=== PATIENT | female | born 1950 | race African-American/Black ===

== ENCOUNTER 2016-07-02 14:34 | Outpatient (CLI) ==
[2012-10-24 06:54] VITALS: TEMP 98.1
[2016-02-26 16:40] VITALS: BMI 39.3
--- NOTE | 2016-07-02 17:24 | MRI ---
EXAM: Brain MRI without contrast. HISTORY: Headache and dizziness. COMPARISON: Head CT 10/21/[address] 11/23/2009. TECHNIQUE: Multiplanar, multisequence MR images were acquired of the brain without contrast. FINDINGS: The midline structures are central. The cerebellar tonsils extend to the foramen magnum without overt ectopia. The ventricles and sulci are normal in size and configuration. There are no abnormal extra-axial fluid collections. The brain parenchyma has no diffusion restriction to suggest acute hypoperfusion or infarction. The re are small T2 hyperintensities in the supratentorial white matter consistent with mild leukomalaci a. There is no abnormal dark gradient echo signal. The corpus callosum is normal. The sella is ex panded and the pituitary gland is small and flattened inferiorly consistent with a mostly empty sell a. There are no intraorbital masses. There is no flattening of the posterior sclera at the optic nerve head insertions and there is no increased fluid in the optic nerve sheaths to suggest benign intrac ranial hypertension. Minor hyperostosis frontalis interna is present. Paranasal sinuses, middle ears and mastoids are unremarkable. Flow voids are present in the major intracranial arteries and dural venous sinuses. IMPRESSION: 1. No intracranial mass, hemorrhage or acute cerebral infarct. 2. Mostly empty sella.
== END 2016-07-02 14:35 | disposition home or self-care (01) ==
LOC: RAD 14:34
PROVIDERS: ATTEND Emergency Medicine
DX: R42 Dizziness and giddiness (principal); R51 Headache

== ENCOUNTER 2016-07-08 15:52 | Outpatient (CLI) ==
[2012-10-24 06:54] VITALS: TEMP 98.1
[2016-02-26 16:40] VITALS: BMI 39.3
== END 2016-07-08 15:53 | disposition home or self-care (01) ==
LOC: CAR 15:52
PROVIDERS: ATTEND Emergency Medicine
DX: G47.30 Sleep apnea, unspecified (principal)
CPT/HCPCS: 95810

== ENCOUNTER 2016-07-29 15:58 | Outpatient (CLI) ==
[2012-10-24 06:54] VITALS: TEMP 98.1
[2016-02-26 16:40] VITALS: BMI 39.3
== END 2016-07-29 15:59 | disposition home or self-care (01) ==
LOC: CAR 15:58
PROVIDERS: ATTEND Psychiatry & Neurology Neurology
DX: G47.33 Obstructive sleep apnea (adult) (pediatric) (principal)
CPT/HCPCS: 95811

== ENCOUNTER 2016-10-28 23:01 | Outpatient (CLI) ==
[2012-10-24 06:54] VITALS: TEMP 98.1
[2016-10-28 23:51] VITALS: BMI 42.3
== END 2016-10-28 23:02 ==
LOC: AMBL 23:01
PROVIDERS: ATTEND Emergency Medicine
DX: R51 Headache (principal); R42 Dizziness and giddiness; I10 Essential (primary) hypertension; M54.9 Dorsalgia, unspecified; G89.29 Other chronic pain; Z98.890 Other specified postprocedural states

== ENCOUNTER 2016-10-28 23:11 | Emergency (ER) ==
[2016-10-28] MEDS ORDERED: ZOFRAN 4 MG/2 ML IM STA (23:14)
[2016-10-28] MEDS ORDERED: DEMEROL 25 MG/ML SYRINGE IM STA (23:14)
[2016-10-28] MEDS ORDERED: CATAPRES PO STA (23:19)
--- NOTE | 2016-10-28 23:19 | ED.PDOC ---
General ED Provider: Dr. GRZEGORZ ELDER Chief Complaint: Hypertension Stated Complaint: patient had injection in the lower back todat at PM, ever since she started hurting more in the lower back, came home slept, while turning in the bed she felt dizzi, weak, EMT was called for the evaluation. Time Seen by Physician: 23:17 Primary Care Provider: PEPE BERMEO Nursing and Triage Documentation Reviewed and Agree: Yes Cardiovascular Complaint Exam - Hypertension Complaint/Exam Symptoms Are: Still present Timing: Constant Aggravating: Reports: Exertion Alleviating: Reports: None Associated Signs and Symptoms: Reports: Recent stress (increased pain), Weakness , Dizziness Related History: Reports: Similar episode Related Surgical History: Reports: None Cardiac Risk Factors: Reports: Hypertension, Elevated lipids Recent Change in Medications: No A/V [place]: No Papilledema Present: No JVD Present: No Carotid Bruit Present: No Femoral Pulses Bounding: No Differential Diagnoses: Hypertension Quality Indicator For Non-Traumatic Chest Pain/Syncope: EKG Performed Review of Systems - Review Of Systems Constitutional: Reports: Malaise, Weakness Eyes: Reports: No symptoms Ears, Nose, Mouth, Throat: Reports: No symptoms Respiratory: Reports: No symptoms Cardiac: Reports: No symptoms GI: Reports: No symptoms : Reports: No symptoms Musculoskeletal: Reports: No symptoms Skin: Reports: No symptoms Neurological: Reports: No symptoms Endocrine: Reports: No symptoms Hematologic/Lymphatic: Reports: No symptoms All Other Systems: Reviewed and Negative Past Medical History - Past Medical History Previously Healthy: Yes Endocrine: Reports: Dyslipidemia Cardiovascular: Reports: Hypertension, Other (IRREGULAR HEART BEAT) Respiratory: Reports: None Hematological: Reports: None Gastrointestinal: Reports: PUD, GERD, Diverticulitis (colon resection) Genitourinary: Reports: None Neuro/Psych: Reports: Anxiety, Depression Musculoskeletal: Reports: Arthritis, Back Pain, Joint Pain Cancer: Reports: None Other Pertinent Past Medical History: [ End ]htn chol anxIRREGULAR HEART BEAT - Surgical History General Surgical History: Reports: Hysterectomy, Appendectomy, Cholecystectomy, Orthopedic (R KNEE REPLACEMENT), Other (RUPTURED BOWEL WITH COLOSTOMY, COLOSTOMY REVERSAL) - Family History Family History: Reports: Unknown - Social History Smoking Status: Former smoker Hx Substance Use: No Alcohol Screening: None Physical Exam - Physical Exam Appearance: Ill-appearing, Obese Ill-appearing: Mild Eyes: EOMI, Conjunctiva clear ENT: Ears normal, Nose normal, Oropharynx normal Respiratory: Airway patent, Breath sounds clear, Breath sounds equal, Respirations nonlabored Cardiovascular: RRR, Pulses normal, No rub, No murmur GI/: Soft, Nontender, No masses, Bowel sounds normal, No Organomegaly Musculoskeletal: Normal strength, ROM intact, No edema, No calf tenderness Skin: Warm, Dry, Normal color Neurological: Sensation intact, Motor intact, Reflexes intact, Cranial nerves intact, Alert, Oriented Psychiatric: Affect appropriate, Mood appropriate Critical Care Note - Critical Care Note Total Time (mins): 0 Course - Course Hematology/Chemistry: 10/28/16 23:34 10/28/16 23:34 Orders, Labs, Meds: Lab Review 10/28/16 23:34 WBC 3.85 L RBC 4.36 Hgb 12.7 Hct 38.7 MCV 88.8 MCH 29.1 MCHC 32.8 RDW Coeff of [place] 13.2 Plt Count 277 Immature Gran % (Auto) 0.3 Neut % (Auto) 75.0 Lymph % (Auto) 21.0 [place] % (Auto) 3.4 Eos % (Auto) 0.0 Baso % (Auto) 0.3 Immature Gran # (Auto) 0.0 Neut # 2.9 Lymph # 0.8 [place] # 0.1 L Eos # 0.0 Baso # 0.0 Sodium 137 Potassium 4.0 Chloride 101 Carbon Dioxide 27 Anion Gap 13.0 BUN 10 Creatinine 0.92 Estimated GFR (MDRD) 74.00 BUN/Creatinine Ratio 10.86 Glucose 245 H Calcium 10.3 H Total Bilirubin 0.20 AST 15 ALT 12 Alkaline Phosphatase 126 Total Creatine Kinase 90 Troponin I 0.0220 Total Protein 8.4 H Albumin 3.8 Globulin 4.6 Albumin/Globulin Ratio 0.83 Orders Category Date Time Status EKG-(ED ONLY) Stat CARDIO 10/28/16 23:14 Completed CBC W/ AUTO DIFF Stat LAB 10/28/16 23:34 Completed COMPREHENSIVE METABOLIC PANEL Stat LAB 10/28/16 23:34 Completed CREATINE KINASE Stat LAB 10/28/16 23:34 Completed TROPONIN I Stat LAB 10/28/16 23:34 Completed Clonidine HCl [Catapres] MEDS 10/28/16 23:19 Discontinued 0.2 mg PO ONCE STA Meperidine HCl/Pf [Demerol 25 mg/ml Syringe] MEDS 10/28/16 23:14 Discontinued 25 mg IM ONCE STA Ondansetron HCl/Pf [Zofran 4 mg/2 ml] MEDS 10/28/16 23:14 Discontinued 4 mg IM ONCE STA CT HEAD W/O CONTRAST Stat RADS 10/28/16 23:[address] LUMBAR SPINE W/O CONTRAST Stat RADS 10/28/16 23:14 Completed Medications Discontinued Medications Generic Name Dose Route Start Last Admin Trade Name Annalee NUNEZ Reason Stop Dose Admin Clonidine 0.2 mg 10/28/16 23:19 10/28/16 23:41 Catapres PO 10/28/16 23:20 0.2 mg ONCE STA Administration Meperidine HCl 25 mg 10/28/16 23:14 10/28/16 23:39 Demerol 25 Mg/Ml Syringe IM 10/28/16 23:15 25 mg ONCE STA Administration Ondansetron HCl 4 mg 10/28/16 23:14 10/28/16 23:40 Zofran 4 Mg/2 Ml IM 10/28/16 23:15 4 mg ONCE STA Administration Vital Signs: Temp Pulse Resp BP Pulse Ox 10/29/16 01:00 156/97 H 10/29/16 00:45 170/80 H 10/28/16 23:14 97.9 F 81 20 171/123 H 93 L KENNETH Risk Score KENNETH Risk Score: Risk Score Odds of by 30D 0 0.1 (0.1-0.2) 1 0.3 (0.2-0.3) 2 0.4 (0.3-0.5) 3 0.7 (0.6-0.9) 4 1.2 (1.0-1.5) 5 2.2 (1.9-2.6) 6 3.0 (2.5-3.6) 7 4.8 (3.8-6.1) Departure - Departure Time of Disposition: 01:10 Disposition: HOME SELF-CARE Discharge Problem: Hypertension Qualifiers: Hypertension type: essential hypertension Qualifier Code: (I10) Essential ( primary) hypertension Instructions: Hypertension (ED) Condition: Stable Pt referred to PMD for follow-up: Yes Additional Instructions: keep checking blood pressure risk of stroke discussed f/u with PMD in 2-3 days Allergies/Adverse Reactions: Allergies atorvastatin calcium [From Lipitor] Allergy (Unknown, Verified 10/28/16 23:34) UNKNOWN ketorolac tromethamine [From Toradol] Allergy (Unknown, Verified 10/28/16 23:34) UNKNOWN morphine Allergy (Unknown, Verified 10/28/16 23:34) UNKNOWN niacin Allergy (Unknown, Verified 10/28/16 23:34) UNKNOWN Penicillins Allergy (Unknown, Verified 10/28/16 23:34) UNKNOWN aspirin Adverse Reaction (Mild, Verified 10/28/16 23:34) UPSET STOMACH CAN ONLY TAKE ENTERIC COATED ASPIRIN Home Medications: Ambulatory Orders Clonidine HCl [Catapres] 0.2 mg PO TID 10/21/12 Lorazepam [Ativan] 1 mg PO BID PRN 10/21/12 Rosuvastatin Calcium [Crestor] 20 mg PO BEDTIME 10/21/12 Lisinopril [Zestril] 10 mg PO DAILY 12/05/12 Diltiazem HCl 120 mg PO BID 12/06/12 Hydrocodone/Acetaminophen [[place] 10-325 Tablet] 1 each PO Q6HR PRN #12 tablet Carvedilol 3.125 mg PO BID 06/25/15 Gabapentin 300 mg PO TID 06/25/15 Pantoprazole Sodium 40 mg PO BID 06/25/15 Escitalopram Oxalate [Lexapro] 20 mg PO DAILY #30 tablet 06/28/15 Neomycin/Polymyxin B Sulf/Hc [Ouevebrd-Jgzk-Gx Eye Drops] 7.5 ml OP TID 7 Days 06/28/15 Sucralfate Susp [Carafate] 1 gm PO ACHS #120 cup 06/28/15 Disposition Discussed With: Patient
[2016-10-28 23:36] LABS: BASOPHILS % (AUTO) 0.3 % (0.0-3.0); HEMATOCRIT 38.7 % (37.0-47.0); HEMOGLOBIN 12.7 g/dl (12.0-16.0); IMMATURE GRANULOCYTE % (AUTO) 0.3 % (0.0-5.0); LYMPHOCYTES # (AUTO) 0.8 K/uL (0.60-3.4); MEAN CORPUSCULAR HEMOGLOBIN 29.1 pg (27.0-31.0); MEAN CORPUSCULAR HGB CONC 32.8 (31.8-35.4); MEAN CORPUSCULAR VOLUME 88.8 fl (81.0-99.0); MONOCYTES # (AUTO) 0.1 K/uL (0.4-2.0); MONOCYTES % (AUTO) 3.4 (0-10); NEUTROPHILS # (AUTO) 2.9 K/ul (2.0-6.9); PLATELET COUNT 277 10^3/uL (140-440); RED BLOOD COUNT 4.36 10^6/ul (4.20-5.40); WHITE BLOOD COUNT 3.85 K/ul (4.6-10.2)
[2016-10-28 23:51] VITALS: TEMP 97.9; BMI 42.3
[2016-10-29 00:01] LABS: ALBUMIN 3.8 g/dL (3.4-5.0); ALBUMIN/GLOBULIN RATIO 0.83; BILIRUBIN,TOTAL 0.2 mg/dL (0.00-1.20); BUN/CREATININE RATIO 10.86; CALCIUM 10.3 mg/dL (8.2-10.2); CREATININE 0.92 mg/dL (0.60-1.30); TOTAL PROTEIN 8.4 g/dL (5.8-8.1); TROPONIN I 0.022 ng/ml (0.0000-0.4000)
--- NOTE | 2016-10-29 00:17 | CT ---
EXAM: CT lumbar spine without intravenous contrast 10/28/2016. Sagittal and coronal reformatted im ages obtained HISTORY: Back pain COMPARISON: 11/05/2014 FINDINGS: A normal lumbar lordosis is maintained. The vertebral bodies appear intact without evide nce of fracture. The facet joints align normally. Mild multilevel degenerative disc disease. Mild to moderate facet arthropathy most prominent at L4- S1. Posterior disc bulge flattens the thecal sac at L5-S1. No definitive spinal stenosis. IMPRESSION: Degenerative findings as discussed above. No acute osseous abnormality of the lumbar s pine.
--- NOTE | 2016-10-29 00:17 | CT ---
EXAM: CT scan brain without contrast HISTORY: Headache COMPARISON: CT scan brain 10/25/2012 FINDINGS: Contiguous axial images were obtained from the skull base to the convexities without cont rast utilizing 5-mm collimation. Sagittal and coronal reconstructions were imaged and reviewed.. T he ventricles and CSF spaces are within normal limits. There are no acute intracranial findings. T here is an empty appearing sella. Visualized paranasal sinuses and mastoid air cells are clear. IMPRESSION: No acute intracranial findings.
[2016-10-29 01:17] VITALS: BP 156/97
== END 2016-10-29 01:15 | disposition home or self-care (01) ==
LOC: ED 23:11
DX: I10 Essential (primary) hypertension (principal); M54.5 Low back pain; R42 Dizziness and giddiness; R53.1 Weakness; E78.5 Hyperlipidemia, unspecified; Z79.899 Other long term (current) drug therapy
CPT/HCPCS: 36415; 80053; 82550; 84484; 85025; 93005; 93010; 96372; 99283

== ENCOUNTER 2017-04-20 08:33 | Outpatient (CLI) ==
[2012-10-24 06:54] VITALS: TEMP 98.1
[2017-04-20 09:06] LABS: BASOPHILS % (AUTO) 0.8 % (0.0-3.0); EOSINOPHILS % (AUTO) 0.8 % (0.0-7.0); HEMOGLOBIN 12.5 g/dl (12.0-16.0); LYMPHOCYTES # (AUTO) 2.1 K/uL (0.60-3.4); MEAN CORPUSCULAR HEMOGLOBIN 30.1 pg (27.0-31.0); MEAN CORPUSCULAR HGB CONC 33.8 (31.8-35.4); MEAN CORPUSCULAR VOLUME 89.2 fl (81.0-99.0); MONOCYTES # (AUTO) 0.3 K/uL (0.4-2.0); MONOCYTES % (AUTO) 7.4 (0-10); NEUTROPHILS # (AUTO) 1.4 K/ul (2.0-6.9); PLATELET COUNT 304 10^3/uL (140-440); RED BLOOD COUNT 4.15 10^6/ul (4.20-5.40); WHITE BLOOD COUNT 3.78 K/ul (4.6-10.2)
[2017-04-20 09:57] LABS: ALBUMIN 3.5 g/dL (3.4-5.0); ALBUMIN/GLOBULIN RATIO 0.78; ANION GAP 17.5; BILIRUBIN,TOTAL 0.24 mg/dL (0.00-1.20); BUN/CREATININE RATIO 12.26; CALCIUM 9.5 mg/dL (8.2-10.2); CHOL/HDL RATIO 4.6 (4.5-5.5); CREATININE 1.06 mg/dL (0.60-1.30); POTASSIUM 3.5 mmol/L (3.5-5.10)
--- NOTE | 2017-04-21 09:01 | MAMMO ---
EXAM: Bilateral digital screening mammogram (2-D and 3-D) History: Screening Comparison: Bilateral mammogram 03/28/2013 Findings: MLO and CC views of bilateral breasts demonstrate predominately fatty replaced breast pare nchyma. There are no dominant masses, no suspicious microcalcifications and no architectural distort ions Impression: Negative mammogram with no significant change. Recommend followup routine screening quirino mography in 1 year. BIRADS 1
== END 2017-04-20 08:34 | disposition home or self-care (01) ==
LOC: RAD 08:33
PROVIDERS: ATTEND Emergency Medicine
DX: Z12.31 Encounter for screening mammogram for malignant neoplasm of breast (principal); E66.9 Obesity, unspecified; I10 Essential (primary) hypertension; M47.26 Other spondylosis with radiculopathy, lumbar region
CPT/HCPCS: 36415; 77067; 80053; 80061; 84443; 85025

== ENCOUNTER 2017-08-10 16:06 | Outpatient (CLI) | payer OTHER ==
[2012-10-24 06:54] VITALS: TEMP 98.1
== END 2017-08-10 16:07 | disposition home or self-care (01) ==
LOC: RHC-LAB 16:06
PROVIDERS: ATTEND Emergency Medicine
DX: E78.5 Hyperlipidemia, unspecified (principal); I10 Essential (primary) hypertension
CPT/HCPCS: 36415; 80053; 80061; 84443; 85025

== ENCOUNTER 2017-08-12 09:30 | Outpatient (CLI) ==
[2012-10-24 06:54] VITALS: TEMP 98.1
--- NOTE | 2017-08-12 10:45 | CT ---
EXAM: CT abdomen pelvis without intravenous contrast 08/12/2017. Sagittal and coronal reformatted i mages obtained HISTORY: Epigastric pain COMPARISON: 02/26/2016 FINDINGS: The liver shows no acute abnormality. Cyst within the left lobe appears unchanged. Gallb ladder has been removed. The adrenal glands and kidneys show no acute abnormality. No hydronephrosis. The spleen and pancrea s show no acute abnormality. There is no bowel obstruction. No evidence of appendicitis. Unremarkable urinary bladder. Status post hysterectomy. IMPRESSION: 1. Status post cholecystectomy and hysterectomy. 2. Stable hepatic cyst. 3. No urinary or bowel obstruction. 4. No acute inflammatory process identified within the abdomen or pelvis within the limitation of a noncontrast enhanced examination.
== END 2017-08-12 09:31 | disposition home or self-care (01) ==
LOC: RAD 09:30
PROVIDERS: ATTEND Emergency Medicine
DX: R10.13 Epigastric pain (principal)

== ENCOUNTER 2017-08-20 18:54 | Emergency (ER) | payer OTHER ==
[2017-08-20 19:04] VITALS: TEMP 98; BMI 41.6
[2017-08-20] MEDS ORDERED: SODIUM CHLORIDE 1,000 ML IV STA (19:28)
[2017-08-20] MEDS ORDERED: MACROBID PO STA (21:10)
--- NOTE | 2017-08-20 21:18 | ED.PDOC ---
General ED Provider: Dr. HANH ARANA Chief Complaint: Abdominal Pain Stated Complaint: Patient state she has had diffuse abdominal pain off and on for over a month. She states sometimes she gets constipated due to the medications she is getting for chronic back pain and fibromyalgia. she recently had a negative CT. has had multiple bowel surgeries. in the past Time Seen by Physician: 19:05 Mode of Arrival: Walk-In Information Source: Patient Exam Limitations: No limitations [facility] and T[facility] Documentation Reviewed and Agree: Yes Reviewed sepsis parameters & appropriate labs ordered?: No System Inflammatory Response Syndrome: Not Applicable Sepsis Protocol: For patient's 13 years and over: Temp is 96.8 and below OR 101 and greater Pulse >90 BPM Resp >20/minute Acutely Altered Mental Status Are patient's symptoms suggestive of a new infection, such as: -Pneumonia -Skin, Soft Tissue -Endocarditis -UTI -Bone, Joint Infection -Implantable Device -Acute Abdominal Infection -Wound Infection -Meningitis -Blood Stream Catheter Infection -Unknown System Inflammatory Response Syndrome: Not Applicable GI Complaint Exam - Abdominal Pain Complaint/Exam Onset: Gradual Duration: 1 month Symptoms Are: Still present Timing: Intermittent Initial Severity: Severe Current Severity: Moderate Location of Pain: Diffuse Radiates To: Reports: Inguinal. Denies: Back, Flank Character: Reports: Aching, Throbbing Aggravating: Reports: None Alleviating: Reports: None Associated Signs and Symptoms: Denies: Diaphoresis, Fever, Cough, Chest pain, Dizziness, Back pain, Constipation, Blood in stool, Dysuria, Urinary frequency, Decreased urine output, Decreased appetite, Vaginal bleeding, Vaginal discharge , Nausea, Vomiting, Diarrhea, Sore throat, Decreased activity AAA Risk Factors: Reports: None Cardiac Risk Factors: Reports: None Ectopic Risk Factors: Reports: None Ovarian Torsion Risk Factors: Reports: Hysterectomy Surgical Obstruction Risk Factors: Reports: Prior abdominal surgery Patient Rh Status: Unknown Abdominal Findings: Absent: [place] tender, CVA Tenderness Differential Diagnoses: Bowel Obstruction, Gastroenteritis, UTI Review of Systems - Review Of Systems Constitutional: Reports: No symptoms Eyes: Reports: No symptoms Ears, Nose, Mouth, Throat: Reports: No symptoms Respiratory: Reports: No symptoms GI: Reports: Abdominal pain, Constipated (off and on not today. ) Musculoskeletal: Reports: Back pain Skin: Reports: No symptoms Neurological: Reports: Anxiety All Other Systems: Reviewed and Negative Past Medical History - Past Medical History Previously Healthy: Yes Endocrine: Reports: Dyslipidemia Cardiovascular: Reports: Hypertension, Other (IRREGULAR HEART BEAT) Respiratory: Reports: None Hematological: Reports: None Gastrointestinal: Reports: PUD, GERD, Diverticulitis (colon resection) Genitourinary: Reports: None Neuro/Psych: Reports: Anxiety, Depression Musculoskeletal: Reports: Arthritis, Back Pain, Joint Pain Cancer: Reports: None Last Menstrual Period: none Other Pertinent Past Medical History: [ End ]htn chol anxIRREGULAR HEART BEAT - Surgical History General Surgical History: Reports: Hysterectomy, Appendectomy, Cholecystectomy, Orthopedic (R KNEE REPLACEMENT), Other (RUPTURED BOWEL WITH COLOSTOMY, COLOSTOMY REVERSAL) - Family History Family History: Reports: Unknown - Social History Smoking Status: Former smoker Hx Substance Use: No Alcohol Screening: None Physical Exam - Physical Exam Appearance: Well-appearing Ill-appearing: Mild Pain Distress: Moderate Eyes: BRITANY, EOMI, Conjunctiva clear ENT: Ears normal, Nose normal, Oropharynx normal Neck: Supple Respiratory: Airway patent, Breath sounds clear, Breath sounds equal, Respirations nonlabored Cardiovascular: RRR, Pulses normal, No rub, No murmur GI/: Soft, Tender (diffusely ) Musculoskeletal: Normal strength, ROM intact, No edema, No calf tenderness Skin: Warm, Dry, Normal color Neurological: Sensation intact, Motor intact, Reflexes intact, Cranial nerves intact, Alert, Oriented Psychiatric: Anxious Critical Care Note - Critical Care Note Total Time (mins): 0 Course - Course Hematology/Chemistry: 08/20/17 20:30 08/20/17 20:30 Orders, Labs, Meds: Lab Review 08/20/17 08/20/17 08/20/17 19:55 20:30 20:30 WBC 4.48 L RBC 4.13 L Hgb 12.6 Hct 38.1 MCV 92.3 MCH 30.5 MCHC 33.1 RDW Coeff of [place] 13.8 Plt Count 239 Immature Gran % (Auto) 0.2 Neut % (Auto) 38.7 Lymph % (Auto) 52.2 H [place] % (Auto) 6.9 Eos % (Auto) 1.3 Baso % (Auto) 0.7 Immature Gran # (Auto) 0.0 Neut # (Auto) 1.7 L Lymph # (Auto) 2.3 [place] # (Auto) 0.3 L Eos # (Auto) 0.1 Baso # (Auto) 0.0 Sodium 141 Potassium 3.6 Chloride 104 Carbon Dioxide 23 Anion Gap 17.6 BUN 11 Creatinine 0.85 Estimated GFR (MDRD) 81.00 BUN/Creatinine Ratio 12.94 Glucose 152 H Calcium 9.6 Total Bilirubin 0.1 AST 14 L ALT 10 L Alkaline Phosphatase 120 Total Protein 7.6 Albumin 3.5 Globulin 4.1 Albumin/Globulin Ratio 0.85 Amylase 81 Lipase 75 Urine Color Yellow Urine Clarity Clear Urine pH 5.5 Ur Specific [place] >=1.030 Urine Protein 1+ Urine Glucose (UA) Negative Urine Ketones Trace Urine Blood Negative Urine Nitrite Negative Urine Bilirubin Negative Urine Urobilinogen 0.2 Ur Leukocyte Esterase Negative Urine Microscopic WBC 2-5 Ur Squamous Epith Cells 2-5 Urine Bacteria 2+ Hyaline Casts 0-2 Urine Mucus Trace Orders Category Date Time Status NPO REMINDER: IMAGING ONCE CARE 08/20/17 19:38 Active ED IV/MEDIPORT/POWERPORT .ONCE EMERGENCY 08/20/17 19:25 Active AMYLASE Stat LAB 08/20/17 20:30 Completed CBC W/ AUTO DIFF Stat LAB 08/20/17 20:30 Completed COMPREHENSIVE METABOLIC PANEL Stat LAB 08/20/17 20:30 Completed LIPASE Stat LAB 08/20/17 20:30 Completed URINALYSIS C & S IF INDICATED Stat LAB 08/20/17 19:55 Completed URINE CULTURE Stat LAB 08/20/17 19:55 Received 0.9 % Sodium Chloride [Saline Flush] MEDS 08/20/17 19:25 Discontinued 1 syr IVF PRN PRN Nitrofurantoin Monohyd/M-Cryst [Macrobid] MEDS 08/20/17 21:10 Discontinued 100 mg PO ONCE STA Sodium Chloride 0.9% [Sodium Chloride] 1,000 ml MEDS 08/20/17 19:[address] ABD/PEL WO RENAL STONE PROT Stat RADS 08/20/17 21:08 Completed Medications Discontinued Medications Generic Name Dose Route Start Last Admin Trade Name Freq PRN Reason Stop Dose Admin Sodium Chloride 1,000 mls @ 1,000 mls/hr 08/20/17 19:28 Sodium Chloride IV 08/20/17 20:27 BOLUS STA Nitrofurantoin Macrocrystals 100 mg 08/20/17 21:10 03/30/18 21:20 Macrobid PO 08/20/17 21:11 100 mg ONCE STA Administration Sodium Chloride 1 syr 08/20/17 19:25 Saline Flush IVF PRN PRN To flush IV Vital Signs: Temp Pulse Resp BP Pulse Ox 08/20/17 21:22 142/91 H 08/20/17 18:54 98.0 F 96 H 18 178/124 H 96 Departure - Departure Time of Disposition: 21:40 Disposition: HOME SELF-CARE Discharge Problem: Urinary tract infection Qualifiers: Urinary tract infection type: acute cystitis Hematuria presence: without hematuria Qualified Code(s): N30.00 - Acute cystitis without hematuria Constipation Qualifiers: Constipation type: drug induced constipation Qualified Code(s): K59.03 - Drug induced constipation Instructions: Constipation (ED) Condition: Stable Pt referred to PMD for follow-up: Yes IPMP verified?: Yes Additional Instructions: Take Medications as prescribed Follow up with PCP in 3 -5 days Prescriptions: Nitrofurantoin Monohyd/M-Cryst [Macrobid] 100 mg PO BID #14 capsule Polyethylene Glycol 3350 [Miralax] 17 gm PO DAILY #580 powd.pack Allergies/Adverse Reactions: Allergies atorvastatin calcium [From Lipitor] Allergy (Unknown, Verified 08/20/17 19:00) UNKNOWN ketorolac tromethamine [From Toradol] Allergy (Unknown, Verified 08/20/17 19:00) UNKNOWN morphine Allergy (Unknown, Verified 08/20/17 19:00) UNKNOWN niacin Allergy (Unknown, Verified 08/20/17 19:00) UNKNOWN Penicillins Allergy (Unknown, Verified 08/20/17 19:00) UNKNOWN aspirin Adverse Reaction (Mild, Verified 08/20/17 19:00) UPSET STOMACH CAN ONLY TAKE ENTERIC COATED ASPIRIN Home Medications: Ambulatory Orders Hydrocodone/Acetaminophen [Hydrocodon-Acetaminoph 7.5-325] 1 each PO TID PRN Nitrofurantoin Monohyd/M-Cryst [Macrobid] 100 mg PO BID #14 capsule 08/20/17 Polyethylene Glycol 3350 [Miralax] 17 gm PO DAILY #580 powd.pack 08/20/17 Disposition Discussed With: Patient, Family
[2017-08-20 21:22] VITALS: BP 142/91
--- NOTE | 2017-08-20 21:35 | CT ---
EXAM: CT abdomen pelvis without contrast HISTORY: Abdominal pain COMPARISON: CT abdomen pelvis 08/12/2017 and 06/25/2015 TECHNIQUE: Serial axial images of the abdomen pelvis were performed from the lung bases through the inferior pelvis without contrast. These were viewed in multiple planes. FINDINGS: The lung bases are clear. Evaluation is limited due to lack of contrast. The liver demonstrates unchanged low attenuation lesi on in the left hepatic lobe measuring 1.8 x 3.1 cm. The gallbladder has been removed. The adrenal gl ands are normal. Within the spleen is normal. Pancreas is unremarkable. The stomach is mildly diste nded. The small bowel in the abdomen pelvis is unremarkable. The colon demonstrates surgical changes in th e sigmoid colon. The pancreas is unremarkable. There are surgical clips in the pelvis. Urinary blad [place] is distended. The osseous structures are unremarkable. IMPRESSION: 1. No acute abnormality to account for patient's symptoms. 2. Prior cholecystectomy and postsurgical changes in the pelvis. 3. Stable hepatic cyst.
== END 2017-08-20 21:49 | disposition home or self-care (01) ==
LOC: ED 18:54
DX: N30.00 Acute cystitis without hematuria (principal); K59.03 Drug induced constipation; I10 Essential (primary) hypertension; E78.5 Hyperlipidemia, unspecified; Z87.19 Personal history of other diseases of the digestive system
CPT/HCPCS: 36415; 74176; 80053; 81001; 82150; 83690; 85025; 87086; 99283

== ENCOUNTER 2017-11-02 12:22 | Outpatient (CLI) | payer OTHER ==
[2012-10-24 06:54] VITALS: TEMP 98.1
== END 2017-11-02 12:23 | disposition home or self-care (01) ==
LOC: RHC-LAB 12:22
PROVIDERS: ATTEND Emergency Medicine
DX: M47.26 Other spondylosis with radiculopathy, lumbar region (principal); I10 Essential (primary) hypertension; R10.84 Generalized abdominal pain; K64.0 First degree hemorrhoids
CPT/HCPCS: 36415; 80053; 85025

== ENCOUNTER 2018-02-06 09:05 | Emergency (ER) ==
[2018-02-06 09:13] VITALS: BP 188/91; TEMP 97.5; BMI 41.8
--- NOTE | 2018-02-06 09:22 | ED.PDOC ---
General ED Provider: Dr. OSEI BORRERO Chief Complaint: Fall Stated Complaint: Generalized body aching since fall from bed on Wednesday. Does not remember fall. Went to Pain management on Wednesday for routine spinal injection. Some visual changes periodically. None today. Denies nausea or vomiting Time Seen by Physician: 09:15 Mode of Arrival: Walk-In Information Source: Patient Exam Limitations: No limitations [facility] Nursing and Triage Documentation Reviewed and Agree: Yes Does patient meet sepsis criteria?: No System Inflammatory Response Syndrome: Not Applicable Sepsis Protocol: For patient's 13 years and over: Temp is 96.8 and below OR 101 and greater Pulse >90 BPM Resp >20/minute Acutely Altered Mental Status Are patient's symptoms suggestive of a new infection, such as: -Pneumonia -Skin, Soft Tissue -Endocarditis -UTI -Bone, Joint Infection -Implantable Device -Acute Abdominal Infection -Wound Infection -Meningitis -Blood Stream Catheter Infection -Unknown Neurological Complaint Exam - Headache Complaint/Exam Onset: Gradual Duration: 6 days Symptoms Are: Still present (but improved) Timing: Intermittent Episodes Lasting: Minutes Worst Headache Ever: No Initial Severity: Moderate Current Severity: Mild Location: Frontal Character: Reports: Sharp Alleviating: Reports: Rest Associated Signs and Symptoms: Reports: Dizziness, Visual changes. Denies: Seizure, Nausea, Vomiting, Sinus pressure, Fever, Neck pain, Neck stiffness, Decreased LOC Related History: Denies: Similar episode Related Surgical History: Reports: None Meningitis Risk Factors: Reports: None SDH Risk Factors: Reports: None Temporal Arteritis Risk Factors: Reports: None Normal Head CT Within Last 12 Months: No Fundoscopic Exam: Present: Normal Findings Papilledema Present: No Temporal Artery Tenderness: Present: None Sinus Tenderness: Present: None TMJ Tenderness: Present: None Glascow Coma Scale (see protocol): 15 Review of Systems - Review Of Systems Constitutional: Reports: No symptoms Eyes: Reports: No symptoms Ears, Nose, Mouth, Throat: Reports: No symptoms Respiratory: Reports: No symptoms Cardiac: Reports: No symptoms GI: Reports: No symptoms : Reports: No symptoms Musculoskeletal: Reports: No symptoms Skin: Reports: No symptoms Neurological: Reports: No symptoms Endocrine: Reports: No symptoms Hematologic/Lymphatic: Reports: No symptoms All Other Systems: Reviewed and Negative Past Medical History - Past Medical History Previously Healthy: Yes Endocrine: Reports: Dyslipidemia Cardiovascular: Reports: Hypertension, Other (IRREGULAR HEART BEAT) Respiratory: Reports: None Hematological: Reports: None Gastrointestinal: Reports: PUD, GERD, Diverticulitis (colon resection) Genitourinary: Reports: None Neuro/Psych: Reports: Anxiety, Depression Musculoskeletal: Reports: Arthritis, Back Pain, Joint Pain Cancer: Reports: None Last Menstrual Period: n/a Other Pertinent Past Medical History: [ End ]htn chol anxIRREGULAR HEART BEAT - Surgical History General Surgical History: Reports: Hysterectomy, Appendectomy, Cholecystectomy, Orthopedic (R KNEE REPLACEMENT), Other (RUPTURED BOWEL WITH COLOSTOMY, COLOSTOMY REVERSAL) - Family History Family History: Reports: Unknown - Social History Smoking Status: Former smoker Hx Substance Use: No Alcohol Screening: None Physical Exam - Physical Exam Appearance: Well-appearing, No pain distress, Well-nourished, Obese Ill-appearing: Mild Pain Distress: None Eyes: BRITANY, EOMI, Conjunctiva clear ENT: Ears normal, Nose normal, Oropharynx normal Respiratory: Airway patent, Breath sounds clear, Breath sounds equal, Respirations nonlabored Cardiovascular: RRR, Pulses normal, No rub, No murmur GI/: Soft, Nontender, No masses, Bowel sounds normal, No Organomegaly Musculoskeletal: Normal strength, ROM intact, No edema, No calf tenderness Skin: Warm, Dry, Normal color Neurological: Sensation intact, Motor intact, Reflexes intact, Cranial nerves intact, Alert, Oriented Psychiatric: Affect appropriate, Mood appropriate Interpretation - Radiology Interpretation Radiology Interpretation By: Radiologist Radiology Results: No acute changes Exam Interpreted: CT Scan Xray Comments: changes noted from recent spinal injection - Director Of Retail Time of Director Of Retail Interpretation: 11:45 Rate: Normal - EKG Interpretation Rate: Normal Re-Evaluation - Re-Evaluation Time of Re-Evaluation: 12:15 Status: Improved Vital Signs Stable: Yes Appearance: NAD Lungs: Clear Skin: Warm and Dry Neuro: Alert and Oriented X3 CV: RRR Critical Care Note - Critical Care Note Total Time (mins): 0 Course - Course Hematology/Chemistry: 02/06/18 11:40 Orders, Labs, Meds: Lab Review 02/06/18 11:40 WBC 6.56 RBC 4.19 L Hgb 12.5 Hct 37.9 MCV 90.5 MCH 29.8 MCHC 33.0 RDW Coeff of [place] 14.2 Plt Count 272 Immature Gran % (Auto) 0.3 Neut % (Auto) 39.4 Lymph % (Auto) 52.9 H [place] % (Auto) 6.6 Eos % (Auto) 0.5 Baso % (Auto) 0.3 Immature Gran # (Auto) 0.0 Neut # (Auto) 2.6 Lymph # (Auto) 3.5 H [place] # (Auto) 0.4 Eos # (Auto) 0.0 Baso # (Auto) 0.0 Orders Category Date Time Status EKG-(ED ONLY) Stat CARDIO 02/06/18 10:15 Ordered CBC W/ AUTO DIFF Stat LAB 02/06/18 11:40 Completed CMP [COMPREHENSIVE METABOLIC PANEL] Stat LAB 02/06/18 11:40 Received UA [URINALYSIS C & S IF INDICATED] Stat LAB 02/06/18 10:15 Uncollected URINE DRUG SCREEN (RAPID FOR ED) [DRUG SCREEN, URINE, LAB 02/06/18 10:15 Uncollected RAPID] Stat CT HEAD W/O CONTRAST Stat RADS 02/06/18 10:15 Completed Vital Signs: Temp Pulse Resp BP Pulse Ox 02/06/18 09:06 97.5 F L 81 16 188/91 H 97 Departure - Departure Time of Disposition: 12:15 Disposition: HOME SELF-CARE Discharge Problem: Closed head injury, Brain concussion Instructions: Concussion (ED) Condition: Good Pt referred to PMD for follow-up: Yes IPMP verified?: No Additional Instructions: Follow up pcp in next week Allergies/Adverse Reactions: Allergies atorvastatin calcium [From Lipitor] Allergy (Unknown, Verified 02/06/18 09:15) UNKNOWN ketorolac tromethamine [From Toradol] Allergy (Unknown, Verified 02/06/18 09:15) UNKNOWN morphine Allergy (Unknown, Verified 02/06/18 09:15) UNKNOWN niacin Allergy (Unknown, Verified 02/06/18 09:15) UNKNOWN Penicillins Allergy (Unknown, Verified 02/06/18 09:15) UNKNOWN aspirin Adverse Reaction (Mild, Verified 02/06/18 09:15) UPSET STOMACH CAN ONLY TAKE ENTERIC COATED ASPIRIN Home Medications: Ambulatory Orders Hydrocodone/Acetaminophen [Hydrocodon-Acetaminoph 7.5-325] 1 each PO TID PRN Polyethylene Glycol 3350 [Miralax] 17 gm PO DAILY #580 powd.pack 03/30/18 Ondansetron [Zofran Odt] 4 mg PO Q8H PRN 02/06/18 Disposition Discussed With: Patient
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
== END 2018-02-06 13:14 | disposition home or self-care (01) ==
LOC: ED 09:05
DX: S06.0X9A Concussion with loss of consciousness of unspecified duration, initial encounter (principal); R52 Pain, unspecified; W19.XXXA Unspecified fall, initial encounter; R42 Dizziness and giddiness; E78.5 Hyperlipidemia, unspecified; I10 Essential (primary) hypertension
CPT/HCPCS: 36415; 80053; 80306; 81001; 85025; 93005; 93010; 99283

== ENCOUNTER 2018-05-24 18:05 | Emergency (ER) ==
[2018-05-24 18:11] VITALS: TEMP 97.4; BMI 40.4
[2018-05-24] MEDS ORDERED: LIDOCAINE HCL 1% SDV IM STA (18:23)
[2018-05-24] MEDS ORDERED: DECADRON 4 MG/ML SDV IM STA (18:23)
[2018-05-24] MEDS ORDERED: ROCEPHIN IM STA (18:23)
--- NOTE | 2018-05-24 18:31 | ED.PDOC ---
General ED Provider: Dr. LOS CASTILLO Chief Complaint: Non-specific Complaint Stated Complaint: maxillary sinus pain and drainage Time Seen by Physician: 18:05 Mode of Arrival: Walk-In Information Source: Patient Exam Limitations: No limitations Primary Care Provider: MATHEW ESTES Nursing and Triage Documentation Reviewed and Agree: Yes Does patient meet sepsis criteria?: No System Inflammatory Response Syndrome: Not Applicable Sepsis Protocol: For patient's 13 years and over: Temp is 96.8 and below OR 101 and greater Pulse >90 BPM Resp >20/minute Acutely Altered Mental Status Are patient's symptoms suggestive of a new infection, such as: -Pneumonia -Skin, Soft Tissue -Endocarditis -UTI -Bone, Joint Infection -Implantable Device -Acute Abdominal Infection -Wound Infection -Meningitis -Blood Stream Catheter Infection -Unknown EENT Complaint Exam - Nasal Complaint/Exam Onset/Duration: today green/ blue drainage Symptoms Are: Resolved Timing: Intermittent Initial Severity: Mild Current Severity: Mild Location: Right Aggravating: Reports: None Alleviating: Reports: None Associated Signs and Symptoms: Reports: Nasal congestion, Nasal discharge. Denies: Bruising, Hematuria, Hematochezia, Sinus pain, Foreign body, Abnormal coags Nasal Surgical History: Reports: None Foreign Body Present: No Septal Hematoma: No Differential Diagnoses: Allergic Rhinitis, Other (sinusitis) Review of Systems - Review Of Systems Constitutional: Reports: No symptoms Eyes: Reports: No symptoms Ears, Nose, Mouth, Throat: Reports: Nose pain (nasal drainage ) Respiratory: Reports: No symptoms Cardiac: Reports: No symptoms GI: Reports: No symptoms : Reports: No symptoms Musculoskeletal: Reports: No symptoms Skin: Reports: No symptoms Neurological: Reports: No symptoms Endocrine: Reports: No symptoms Hematologic/Lymphatic: Reports: No symptoms All Other Systems: Reviewed and Negative Past Medical History - Past Medical History Previously Healthy: Yes Endocrine: Reports: Dyslipidemia Cardiovascular: Reports: Hypertension, Other (IRREGULAR HEART BEAT) Respiratory: Reports: None Hematological: Reports: None Gastrointestinal: Reports: PUD, GERD, Diverticulitis (colon resection) Genitourinary: Reports: None Neuro/Psych: Reports: Anxiety, Depression Musculoskeletal: Reports: Arthritis, Back Pain, Joint Pain Cancer: Reports: None Last Menstrual Period: menopause Other Pertinent Past Medical History: [ End ]htn chol anxIRREGULAR HEART BEAT - Surgical History General Surgical History: Reports: Hysterectomy, Appendectomy, Cholecystectomy, Orthopedic (R KNEE REPLACEMENT), Other (RUPTURED BOWEL WITH COLOSTOMY, COLOSTOMY REVERSAL) - Family History Family History: Reports: Unknown - Social History Smoking Status: Former smoker Hx Substance Use: No Alcohol Screening: None Physical Exam - Physical Exam Appearance: Well-appearing, No pain distress, Well-nourished Eyes: BRITANY, EOMI, Conjunctiva clear ENT: Nose normal (maxillary sinuses tender ) Respiratory: Airway patent, Breath sounds clear, Breath sounds equal, Respirations nonlabored Cardiovascular: RRR, Pulses normal, No rub, No murmur GI/: Soft, Nontender, No masses, Bowel sounds normal, No Organomegaly Musculoskeletal: Normal strength, ROM intact, No edema, No calf tenderness Skin: Warm, Dry, Normal color Neurological: Sensation intact, Motor intact, Reflexes intact, Cranial nerves intact, Alert, Oriented Psychiatric: Affect appropriate, Mood appropriate Critical Care Note - Critical Care Note Total Time (mins): 0 Course - Course Orders, Labs, Meds: Orders Category Date Time Status Ceftriaxone Sodium [Rocephin] MEDS 05/24/18 18:23 Stat 1 gm IM ONCE STA Dexamethasone 4 mg/ml Inj [Decadron 4 mg/ml Sdv] MEDS 05/24/18 18:23 Stat 8 mg IM ONCE STA Lidocaine HCl/Pf [Lidocaine HCl 1% Sdv] MEDS 05/24/18 18:23 Stat 2.1 ml IM ONCE STA Medications Discontinued Medications Generic Name Dose Route Start Last Admin Trade Name Freq PRN Reason Stop Dose Admin Ceftriaxone Sodium 1 gm 05/24/18 18:23 Rocephin IM 05/24/18 18:24 ONCE STA Dexamethasone Sodium Phosphate 8 mg 05/24/18 18:23 Decadron 4 Mg/Ml Sdv IM 05/24/18 18:24 ONCE STA Lidocaine HCl 2.1 ml 05/24/18 18:23 Lidocaine Hcl 1% Sdv IM 05/24/18 18:24 ONCE STA Vital Signs: Temp Pulse Resp BP Pulse Ox 05/24/18 18:05 97.4 F L 91 H 20 186/124 H 96 Departure - Departure Time of Disposition: 18:31 Disposition: HOME SELF-CARE Discharge Problem: Sinusitis Qualifiers: Chronicity: acute Instructions: Sinusitis (ED) Condition: Good Pt referred to PMD for follow-up: Yes IPMP verified?: No Additional Instructions: Please call your Family Physician as soon as possible to schedule a follow-up appointment. Allergies/Adverse Reactions: Allergies atorvastatin calcium [From Lipitor] Allergy (Unknown, Verified 05/24/18 18:13) UNKNOWN ketorolac tromethamine [From Toradol] Allergy (Unknown, Verified 05/24/18 18:13) UNKNOWN morphine Allergy (Unknown, Verified 05/24/18 18:13) UNKNOWN niacin Allergy (Unknown, Verified 05/24/18 18:13) UNKNOWN Penicillins Allergy (Unknown, Verified 05/24/18 18:13) UNKNOWN aspirin Adverse Reaction (Mild, Verified 05/24/18 18:13) UPSET STOMACH CAN ONLY TAKE ENTERIC COATED ASPIRIN Home Medications: Ambulatory Orders Hydrocodone/Acetaminophen [Hydrocodon-Acetaminoph 7.5-325] 1 each PO TID PRN Polyethylene Glycol 3350 [Miralax] 17 gm PO DAILY #580 powd.pack 08/20/17
[2018-05-24 18:53] VITALS: BP 144/101
== END 2018-05-24 19:01 | disposition home or self-care (01) ==
LOC: ED 18:05
DX: R51 Headache (principal); R09.81 Nasal congestion; J34.89 Other specified disorders of nose and nasal sinuses; J01.90 Acute sinusitis, unspecified
CPT/HCPCS: 96372; 99282

== ENCOUNTER 2018-05-25 12:22 | Outpatient (CLI) ==
[2012-10-24 06:54] VITALS: BP 156/79; TEMP 98.1
[2018-05-24 18:11] VITALS: BMI 40.4
== END 2018-05-25 12:23 | disposition home or self-care (01) ==
LOC: LAB 12:22
PROVIDERS: ATTEND Nurse Practitioner Family
DX: E16.2 Hypoglycemia, unspecified (principal); I10 Essential (primary) hypertension
CPT/HCPCS: 36415; 80053; 83036

== ENCOUNTER 2018-05-26 10:32 | Outpatient (CLI) ==
[2012-10-24 06:54] VITALS: BP 156/79; TEMP 98.1
== END 2018-05-26 10:33 | disposition home or self-care (01) ==
LOC: LAB 10:32
PROVIDERS: ATTEND Nurse Practitioner Family
DX: R73.9 Hyperglycemia, unspecified (principal)
CPT/HCPCS: 36415; 83525; 84681

== ENCOUNTER 2018-05-27 04:01 | Inpatient (IN) ==
[2018-05-27] MEDS ORDERED: SODIUM CHLORIDE 1,000 ML IV STA (04:08)
--- NOTE | 2018-05-27 04:13 | ED.PDOC ---
General ED Provider: Dr. HANH ARANA Chief Complaint: Nausea/Vomiting Stated Complaint: Diarrhea, Nausea x 1 day. States she has had Vomiting x 3 and Diarrhea x 6. She was seen in the ER for sinus infection and the clinic for newly diagnosed DM and started on multiple medications. Thinks that her symptoms are due to intolerance to the new medications she was started on but denies any allergies per se Time Seen by Physician: 04:11 Mode of Arrival: Ambulance Information Source: Patient Primary Care Provider: MATHEW ESTES Nursing and Triage Documentation Reviewed and Agree: Yes Does patient meet sepsis criteria?: No System Inflammatory Response Syndrome: Not Applicable Sepsis Protocol: For patient's 13 years and over: Temp is 96.8 and below OR 101 and greater Pulse >90 BPM Resp >20/minute Acutely Altered Mental Status Are patient's symptoms suggestive of a new infection, such as: -Pneumonia -Skin, Soft Tissue -Endocarditis -UTI -Bone, Joint Infection -Implantable Device -Acute Abdominal Infection -Wound Infection -Meningitis -Blood Stream Catheter Infection -Unknown GI Complaint Exam - Abdominal Pain Complaint/Exam Onset: Gradual Duration: 1 day Symptoms Are: Still present Timing: Intermittent Initial Severity: Moderate Current Severity: Severe Location of Pain: Diffuse Character: Reports: Aching, Cramping Aggravating: Reports: Food Alleviating: Reports: None Associated Signs and Symptoms: Reports: Nausea, Vomiting, Diarrhea Related Surgical History: Reports: Cholecystectomy, Appendectomy, CHACHO, BSO Abdominal Findings: Present: Other (Diffuse abdominal tenderness ). Absent: Rebound tenderness, McBurney's Point tender Differential Diagnoses: Bowel Obstruction, Ischemic Bowel, UTI, Other ( Dehydration. ) Review of Systems - Review Of Systems Constitutional: Reports: No symptoms Eyes: Reports: No symptoms Ears, Nose, Mouth, Throat: Reports: No symptoms Respiratory: Reports: No symptoms Cardiac: Reports: No symptoms GI: Reports: Nausea, Poor appetite, Vomiting : Reports: No symptoms Musculoskeletal: Reports: No symptoms Skin: Reports: No symptoms Neurological: Reports: No symptoms Endocrine: Reports: No symptoms Hematologic/Lymphatic: Reports: No symptoms All Other Systems: Reviewed and Negative Past Medical History - Past Medical History Previously Healthy: Yes Endocrine: Reports: Dyslipidemia Cardiovascular: Reports: Hypertension, Other (IRREGULAR HEART BEAT) Respiratory: Reports: None Hematological: Reports: None Gastrointestinal: Reports: PUD, GERD, Diverticulitis (colon resection) Genitourinary: Reports: None Neuro/Psych: Reports: Anxiety, Depression Musculoskeletal: Reports: Arthritis, Back Pain, Joint Pain Cancer: Reports: None Other Pertinent Past Medical History: [ End ]htn chol anxIRREGULAR HEART BEAT - Surgical History General Surgical History: Reports: Hysterectomy, Appendectomy, Cholecystectomy, Orthopedic (R KNEE REPLACEMENT), Other (RUPTURED BOWEL WITH COLOSTOMY, COLOSTOMY REVERSAL) - Family History Family History: Reports: Unknown - Social History Smoking Status: Former smoker Hx Substance Use: No Alcohol Screening: None Physical Exam - Physical Exam Appearance: Ill-appearing, Obese Ill-appearing: Moderate Pain Distress: Moderate Eyes: BRITANY, EOMI, Conjunctiva clear Neck: Supple Respiratory: Airway patent, Breath sounds clear, Breath sounds equal, Respirations nonlabored Cardiovascular: RRR, Pulses normal, No rub, No murmur GI/: Soft, Tender Skin: Warm, Dry, Normal color Neurological: Sensation intact, Motor intact, Reflexes intact, Cranial nerves intact, Alert, Oriented Psychiatric: Anxious Interpretation - Radiology Interpretation Radiology Interpretation By: Radiologist Radiology Results: Negative Exam Interpreted: CT Scan (of Sinuses ) Radiology Interpretation By: Radiologist Radiology Results: No acute changes Exam Interpreted: CT Scan (Abdomen and Pelvis. ) Physician Notification - Case Discussed Physician Notified: Dr. Campbell. Time of Notification: 05:55 (ok to admits to SCU ) Critical Care Note - Critical Care Note Total Time (mins): 45 Course - Course Hematology/Chemistry: 05/27/18 04:57 05/27/18 04:57 Orders, Labs, Meds: Lab Review 05/27/18 05/27/18 05/27/18 04:53 04:57 04:57 WBC 9.20 RBC 4.31 Hgb 12.6 Hct 37.7 MCV 87.5 MCH 29.2 MCHC 33.4 RDW Coeff of [place] 12.4 Plt Count 285 Immature Gran % (Auto) 0.3 Neut % (Auto) 46.1 Lymph % (Auto) 47.5 [place] % (Auto) 5.8 Eos % (Auto) 0.1 Baso % (Auto) 0.2 Immature Gran # (Auto) 0.0 Neut # (Auto) 4.2 Lymph # (Auto) 4.4 H [place] # (Auto) 0.5 Eos # (Auto) 0.0 Baso # (Auto) 0.0 Puncture Site O2 Saturation ABG pH ABG pCO2 ABG pO2 ABG HCO3 ABG Total CO2 ABG Base Excess Sumeet Test FiO2 % Sodium 134.7 Potassium 2.58 L* Chloride 93.6 L Carbon Dioxide 32.4 H Anion Gap 11.28 BUN 25.8 H Creatinine 1.56 H Estimated GFR (MDRD) 40.00 BUN/Creatinine Ratio 16.53 Glucose 356.5 H Lactic Acid Calcium 9.53 Total Bilirubin 0.33 AST 40.3 H ALT 21.2 Alkaline Phosphatase 128.0 Total Protein 8.07 Albumin 4.33 Globulin 3.74 Albumin/Globulin Ratio 1.15 Amylase 80.6 Lipase 136.7 Procalcitonin Acetone, Qual None 05/27/18 05/27/18 05/27/18 04:57 04:57 04:59 WBC RBC Hgb Hct MCV MCH MCHC RDW Coeff of [place] Plt Count Immature Gran % (Auto) Neut % (Auto) Lymph % (Auto) [place] % (Auto) Eos % (Auto) Baso % (Auto) Immature Gran # (Auto) Neut # (Auto) Lymph # (Auto) [place] # (Auto) Eos # (Auto) Baso # (Auto) Puncture Site Rrad O2 Saturation 97.0 ABG pH 7.530 H* ABG pCO2 35.2 ABG pO2 84.0 L ABG HCO3 29.4 H ABG Total CO2 30 H ABG Base Excess 7 H [place]et Test + FiO2 % 21.0 Sodium Potassium Chloride Carbon Dioxide Anion Gap BUN Creatinine Estimated GFR (MDRD) BUN/Creatinine Ratio Glucose Lactic Acid 1.62 Calcium Total Bilirubin AST ALT Alkaline Phosphatase Total Protein Albumin Globulin Albumin/Globulin Ratio Amylase Lipase Procalcitonin < 0.05 Acetone, Qual Orders Category Date Time Status ABG DRAW REQUEST Routine CARDIO 05/27/18 04:59 Completed BLOOD GLUCOSE MONITORING 0630,1100,1700,2100 CARE 05/27/18 05:27 Active GIVE HS SNACK 2100 CARE 05/27/18 05:40 Active INTAKE & OUTPUT Q8HR CARE 05/27/18 05:24 Active VITAL SIGNS Q4HR CARE 05/27/18 05:25 Active ADA 1800 LIANNA. DIET DIETARY 05/27/18 Breakfast Ordered HS SNACK DIETARY 05/27/18 Dinner Ordered ED IV/MEDIPORT/POWERPORT .ONCE EMERGENCY 05/27/18 04:08 Active ABG Stat LAB 05/27/18 04:59 Completed ACETONE, QUALITATIVE Stat LAB 01/04/19 04:53 Completed AMYLASE Stat LAB 05/27/18 04:57 Completed BASIC METABOLIC PANEL DAILY@0600 LAB 05/27/18 06:00 Ordered BASIC METABOLIC PANEL DAILY@0600 LAB 05/28/18 06:00 Ordered CBC W/ AUTO DIFF DAILY@0600 LAB 05/27/18 06:00 Ordered CBC W/ AUTO DIFF DAILY@0600 LAB 05/28/18 06:00 Ordered CBC W/ AUTO DIFF Stat LAB 05/27/18 04:57 Completed COMPREHENSIVE METABOLIC PANEL Stat LAB 05/27/18 04:57 Completed LACTIC ACID Stat LAB 05/27/18 04:57 Completed LIPASE Stat LAB 05/27/18 04:57 Completed PROCALCITONIN Stat LAB 05/27/18 04:57 Completed URINALYSIS C & S IF INDICATED Stat LAB 05/27/18 04:09 Uncollected 0.9 % Sodium Chloride [Saline Flush] MEDS 05/27/18 04:08 Ordered 1 syr IVF PRN PRN Carvedilol [Coreg] MEDS 05/27/18 09:00 Ordered 12.5 mg PO BID Clonidine HCl [Clonidine HCl] MEDS 05/27/18 09:00 Ordered 1 tab-cap PO TID Dicyclomine HCl [Dicyclomine HCl] MEDS 05/27/18 09:00 Ordered 20 mg PO QID Diltiazem HCl [Diltiazem HCl] MEDS 05/27/18 09:00 Ordered 120 mg PO BID Enoxaparin Sodium [Lovenox] MEDS 05/27/18 09:00 Ordered 30 mg SUBCUT DAILY Gabapentin [Neurontin] MEDS 05/27/18 09:00 Ordered 300 mg PO TID Hydrochlorothiazide MEDS 05/27/18 09:00 Ordered 1 mg PO DAILY Hydrocodone Bit/Acetaminophen [[place] 7.5-325] MEDS 05/27/18 09:00 Ordered DOSE tab PO TID Insulin Regular, Human [Humulin R] MEDS 05/27/18 05:40 Ordered 0 - 8 unit SUBCUT PRN PRN Lorazepam [Ativan] MEDS 05/27/18 05:41 Ordered 1 mg PO BID PRN Metoclopramide HCl [Reglan] MEDS 05/27/18 04:14 Discontinued 10 mg IVP ONCE STA Metoclopramide HCl [Reglan] MEDS 05/27/18 05:30 Ordered 5 mg IVP Q6H Ondansetron HCl/Pf [Zofran 4 mg/2 ml] MEDS 05/27/18 05:24 Ordered 4 mg IVP Q6H PRN Ondansetron [Zofran Odt] MEDS 05/27/18 05:00 Discontinued 4 mg PO ONCE STA Potassium Chloride Additive [Potassium Chloride 20 Meq MEDS 05/27/18 05:53 Stat Vial] 20 meq IV ONCE STA Potassium Chloride in 0.9%NaCl [Sodium Chloride 0.9%- MEDS 05/27/18 05:30 Ordered KCl 20 Meq] 1,000 ml IV 100 mls/hr Sodium Chloride 0.9% [Sodium Chloride] 1,000 ml MEDS 05/27/18 04:08 Discontinued IV BOLUS RESUSCITATION STATUS Routine OTHERS 05/27/18 05:[address] ABD/PEL WO RENAL STONE PROT Stat RADS 05/27/18 04:[address] SINUSES W/O CONTRAST Stat RADS 05/27/18 04:56 Completed Medications Generic Name Dose Route Start Last Admin Trade Name Freq PRN Reason Stop Dose Admin Hydrocodone Bitart/Acetaminophen tab 05/27/18 09:00 [place] 7.5-325 PO TID [facility] Carvedilol 12.5 mg 05/27/18 09:00 Coreg PO BID [facility] Enoxaparin Sodium 30 mg 05/27/18 09:00 Lovenox SUBCUT DAILY [facility] Gabapentin 300 mg 05/27/18 09:00 Neurontin PO TID [facility] Hydrochlorothiazide 1 mg 05/27/18 09:00 Hydrochlorothiazide PO DAILY [facility] Potassium Chloride/Sodium Chloride 1,000 mls @ 100 mls/hr 05/27/18 05:30 Sodium Chloride 0.9%-Kcl 20 Meq IV .Q10H [facility] Insulin Human Regular 0 - 8 unit 05/27/18 05:40 Humulin R SUBCUT PRN PRN Hyperglycemica Protocol Lorazepam 1 mg 05/27/18 05:41 Ativan PO BID PRN Anxiety Metoclopramide HCl 5 mg 05/27/18 05:30 Reglan IVP Q6H GRACY Non-Formulary Medication 1 tab-cap 05/27/18 09:00 Clonidine Hcl [Clonidine Hcl] PO TID GRACY Non-Formulary Medication 20 mg 05/27/18 09:00 Dicyclomine Hcl [Dicyclomine Hcl] PO QID GRACY Non-Formulary Medication 120 mg 05/27/18 09:00 Diltiazem Hcl [Diltiazem Hcl] PO BID GRACY Ondansetron HCl 4 mg 05/27/18 05:24 Zofran 4 Mg/2 Ml IVP Q6H PRN Nausea / Vomiting Potassium Chloride 20 meq 05/27/18 05:53 Potassium Chloride 20 Meq Vial IV 05/27/18 05:54 ONCE STA Sodium Chloride 1 syr 05/27/18 04:08 Saline Flush IVF PRN PRN To flush IV Discontinued Medications Generic Name Dose Route Start Last Admin Trade Name Freq PRN Reason Stop Dose Admin Sodium Chloride 1,000 mls @ 1,000 mls/hr 05/27/18 04:08 05/27/18 05:25 Sodium Chloride IV 05/27/18 05:07 100 mls/hr BOLUS STA Administration Metoclopramide HCl 10 mg 05/27/18 04:14 Reglan IVP 05/27/18 04:15 ONCE STA Ondansetron HCl 4 mg 05/27/18 05:00 05/27/18 05:15 Zofran Odt PO 05/27/18 05:01 4 mg ONCE STA Administration Vital Signs: Temp Pulse Resp BP Pulse Ox 05/27/18 04:02 99.1 F 97 H 20 156/89 H 95 Departure - Departure Time of Disposition: 05:44 Disposition: ADMITTED INPATIENT Discharge Problem: Hyperosmolar hyponatremia, Gastroenteritis Uncontrolled diabetes mellitus Qualifiers: Diabetes mellitus type: type 2 Glycemic state: with hyperglycemia Qualified Code(s): E11.65 - Type 2 diabetes mellitus with hyperglycemia Condition: Fair Pt referred to PMD for follow-up: No IPMP verified?: No Allergies/Adverse Reactions: Allergies atorvastatin calcium [From Lipitor] Allergy (Unknown, Verified 05/27/18 04:17) UNKNOWN ketorolac tromethamine [From Toradol] Allergy (Unknown, Verified 05/27/18 04:17) UNKNOWN morphine Allergy (Unknown, Verified 05/27/18 04:17) UNKNOWN niacin Allergy (Unknown, Verified 05/27/18 04:17) UNKNOWN Penicillins Allergy (Unknown, Verified 05/27/18 04:17) UNKNOWN aspirin Adverse Reaction (Mild, Verified 05/27/18 04:17) UPSET STOMACH CAN ONLY TAKE ENTERIC COATED ASPIRIN Home Medications: Ambulatory Orders Hydrocodone/Acetaminophen [Hydrocodon-Acetaminoph 7.5-325] 1 each PO TID Blood Sugar Diagnostic [Blood Glucose Test] 1 each MC BID 05/27/18 Clotrimazole/Betamethasone Dip [Clotrimazole-Betamethasone Crm] 1 applic TP BID PRN 05/27/18 Gabapentin 300 mg PO TID 05/27/18 Lorazepam 1 mg PO BID PRN 05/27/18 Metformin HCl [Metformin HCl ER] 500 mg PO DIRECTED 05/27/18 Ondansetron [Zofran Odt] 4 mg PO Q8H PRN 05/27/18 Polyethylene Glycol 3350 [Miralax] 17 gm PO DAILY PRN 05/27/18 Simethicone [Gas-X] 125 mg PO DIRECTED PRN 05/27/18
[2018-05-27] MEDS ORDERED: REGLAN IVP STA (04:14)
[2018-05-27 04:16] VITALS: BMI 42.5
[2018-05-27] MEDS ORDERED: ZOFRAN ODT PO STA (05:00)
[2018-05-27] MEDS ORDERED: ZOFRAN 4 MG/2 ML IVP PRN (05:24)
--- NOTE | 2018-05-27 05:29 | ED.PDOC ---
Procedures - IV/Art Line Insertion Location: left upper arm Type of Line: Peripheral IV Invasive Line/IV Catheter Gauge: 24 Number of Attempts: 1 Blood Return Positive: Yes Invasive Line/IV Flushes Without Difficulty: Yes Conscious Sedation - Pre-op Assessment Weight: 240 lb Surgical History: RUPTURED BOWEL WITH COLOSTOMY, COLOSTOMY REVERSAL. GB. HYST. TYLER. R KNEE REPLACEMENT - Medical History Past Medical History: Hypertension, Diabetes, Anemia, High Lipids, Asthma, GERD , Anxiety, Migraines, TIA, Arthritis Other History: IRREGULAR HEART BEAT,BACK INJURY 35 YEARS AGO,FIBROMYALGIA - Physical Exam Heart Rate/Rhythm: Regular Rhythm
--- NOTE | 2018-05-27 05:38 | CT ---
EXAM: CT sinus without intravenous contrast 05/27/2018. Sagittal and coronal reformatted images obt ained HISTORY: Sinusitis COMPARISON: 02/06/2018 FINDINGS: The orbits, zygoma, nasal bones and maxilla appear intact. The temporal mandibular joints align normally. The mastoid air cells are normally pneumatized Normal aeration is present within the paranasal sinuses. No mucosal thickening. No air-fluid levels . No gross soft tissue abnormality. The intraorbital contents appear intact and symmetric. IMPRESSION: No acute process
[2018-05-27] MEDS ORDERED: HUMULIN R SUBCUT PRN (05:40)
[2018-05-27] MEDS ORDERED: ATIVAN PO PRN (05:41)
--- NOTE | 2018-05-27 05:42 | CT ---
EXAM: CT abdomen pelvis without intravenous contrast 05/27/2018. Sagittal and coronal reformatted i mages obtained HISTORY: Diffuse abdominal pain COMPARISON: 08/20/2017 FINDINGS: The liver shows no acute abnormality. Stable hepatic cyst. Status post cholecystectomy. The adrenal glands and kidneys show no acute abnormality. There is no urinary obstruction. The spleen and pancreas show no acute abnormality. There is no evidence of bowel obstruction. Unremarkable urinary bladder. No free air or free fluid. No evidence of appendicitis. Surgical clips are present within the pelvis. No acute osseous abnormality. IMPRESSION: Stable chronic and postoperative findings. No acute inflammatory process identified wit hin the abdomen or pelvis within the limitation of a noncontrast enhanced examination.
[2018-05-27] MEDS ORDERED: POTASSIUM CHLORIDE 20 MEQ VIAL IV STA (05:53)
--- NOTE | 2018-05-27 07:19 | PCM ---
- Chief Complaint Chief Complaint: Hyperglycemia, N/V/D, Sinusitis. - History of Present Illness History of Present Illness: 67 yr old AAF patient of [facility] seen in ER 05/24/[address] Lui for sinusitis given rocephin and decadron 8, office 05/25/18, 05/26/18 and now in ER 05/27/18. Noted hypoglycemia in note from 05/25/18, hyperglycemia w/ A1C >11 on 05/26/18 and seen by WOOD HACKER Canelo 05/26/18 for hyperglycemia started on metformin and januvia. She came in to ER around 04:11 this am via ambulance with Vomiting/Diarrhea 24 hours, total bouts non bloody, non bilious emesis x3, total bouts of non bloody , non mucoid diarrhea x 6. Patient told ER that she thinks her sx are due to new medications that were started. She had not yet taken abx. Vitals reviewed and did not meet Sepsis, Temp 99.1, pulse 97, RR 20, BP 156/[address] Abd pelvis ordered by ER for r/o obstruction was negative. This was ordered with her history of previous abd surgeries. She had reported aching/cramping throughout abd. H/o Jennie, appe, CHACHO/BSO and colonic resection (ostomy + reversal) previously. ER note/presentation to me stated non surgical abd, no rebound/guarding or tenderness at [place] point. She has known history of HTN , Irregular heart beats, Obesity, PUD< GERD, Diverticulitis w/ history of colon resection, anxiety/depression, joint/back pain and arthritis. CT scan of sinuses completed per sinus complaint and negative. CT abdomen negative. Labs from ER showed WBC 9.20, Hgb 12.6, plt 285. Sodium 134.7, K+ 2.58, cl 93.6, bun 25.8, Cr 1.56, glucose 356.5 ast 40.3. Amylase 80.6, lipase 136.7. ABG 02 sat 97 7.530 ph, 35.2 pc02, po2 84, hco3 29.4, co2 30, allens +. Lactic acid was 1.62 and procalcitinon <0.05. ABG Interpretation done by me specifically: Primary respiratory alkalosis possibly chronic with secondary metabolic alkalosis as well. Acetone was negative. She was not able to produce urine. They were not able to get IV in ER. They contacted Dwayne Brewer and he performed conscious sedation on patient and was able to get an IV in her left upper arm, 24G. I was contacted by ER at 545 this am and I agreed to accept her. As of our phone call only 100 cc of NS had been given. No K+ had been given. BG better than previous now in mid 300's. ABG done and alkalotic, sodium was okay, CTs ordered and negative. Pt noted that has been nauseated over the last 1 week. She has not been able to eat as much, has been sipping on sprite and ice water/chips. The patient has epigastric irritation with 3/10 cramping Nausea. She has had sinus pain pressure over the last 1 week. She was seen in office as listed above and started on januvia and metformin yesterday. I reviewed with patient that we would stop these. DIscussed meds, discussed need for insulin when sugars elevated and A1C >10. She has had GDM as noted. Now in room SCU1-1 no skin issues, she has had surgeries as listed above, some chills, cramping/colicky abdominal pain rated at 3/10. Zofran given in ER ODT did help. Last meal last night was some clears. She is tolerating these per her report. We will resume clear liquid diet. - Review of Systems Constitutional: weakness, sweats, fatigue, loss of appetite. No: fever, chills , other Eyes: No: blurred vision, double-vision, discharge, itching, pain, redness, photophobia, other Ears: No: pain, bleeding, drainage, ringing, hearing loss, other Nose: congestion, discharge. No: bleeding, other Throat: pain. No: swelling, voice change, other Mouth: No: bleeding, pain, swelling, other Respiratory: cough. No: shortness of air, wheeze, hemoptysis, pain with breathing, other Cardiovascular: other (occasional extra beat). No: chest pain, left arm pain, diaphoresis, PND, orthopnea, edema, palpitations, syncope Gastrointestinal: abdominal pain, nausea, vomiting, diarrhea. No: other, melena , hematemesis, hematochezia, dysphagia, constipation Genitourinary: No: dysuria, hematuria, frequency, incontinence, flank pain, vaginal discharge Neurological: dizziness, weakness. No: headache, other, seizure, numbness, speech difficulty, problems with walking, tremor, fainting Musculoskeletal: pain (generalized. ) Skin: No: rash, pruritus, lacerations, wounds, bruising, other Immunology: No: hives, itching, frequent infections, difficulty healing, other Hematology: No: easy bruising, easy bleeding, swollen glands, other Endocrine: No: weight changes, cold intolerance, heat intolerance, excessive thirst, excessive hunger, polyuria, other Psychiatric: depression, anxiety. No: sleeplessness, hopelessness, suicidal, hallucinations, other Habits: No: tobacco use (former), substance use, alcohol use, other - Past Medical History Past Medical History: Allergies, anxiety, Arthritis, depression, dizziness, GERD , Hyperlipidemia, HTN, Irregular heart beat, Stomach cancer. Former smoker, GDM historically. Diverticulitis with Colonic resection with ostomy/takedown. Obesity. - Past Surgical History Past Surgical History: Appendectomy, cholecystectomy, dental extraction, hysterectomy, right knee replacement, cyst removal right wrist, BTL, colonic surgery w/ resection, ostomy, colostomy reversal. - Allergies Allergies/Adverse Reactions: Allergies Allergy/AdvReac Type Severity Reaction Status Date / Time atorvastatin calcium Allergy Unknown UNKNOWN Verified 05/27/18 04:17 [From Lipitor] ketorolac tromethamine Allergy Unknown UNKNOWN Verified 05/27/18 04:17 [From Toradol] morphine Allergy Unknown UNKNOWN Verified 05/27/18 04:17 niacin Allergy Unknown UNKNOWN Verified 05/27/18 04:17 Penicillins Allergy Unknown UNKNOWN Verified 05/27/18 04:17 aspirin AdvReac Mild UPSET Verified 05/27/18 04:17 STOMACH - Medications Medications: Medications Generic Name Dose Route Start Last Admin Trade Name Freq PRN Reason Stop Dose Admin Hydrocodone Bitart/Acetaminophen tab 05/27/18 09:00 Bob White 7.5-325 PO TID [facility] Carvedilol 12.5 mg 05/27/18 08:00 Coreg PO BIDWM [facility] Enoxaparin Sodium 30 mg 05/27/18 09:00 Lovenox SUBCUT DAILY [facility] Gabapentin 300 mg 05/27/18 09:00 Neurontin PO TID [facility] Hydrochlorothiazide 1 mg 05/27/18 09:00 Hydrochlorothiazide PO DAILY [facility] Potassium Chloride/Sodium Chloride 1,000 mls @ 100 mls/hr 05/27/18 05:30 Sodium Chloride 0.9%-Kcl 20 Meq IV .Q10H [facility] Insulin Human Regular 0 - 8 unit 05/27/18 05:40 Humulin R SUBCUT PRN PRN Hyperglycemica Protocol Lorazepam 1 mg 05/27/18 05:41 Ativan PO BID PRN Anxiety Metoclopramide HCl 5 mg 05/27/18 05:30 Reglan IVP Q6H [facility] Non-Formulary Medication 1 tab-cap 05/27/18 09:00 Clonidine Hcl [Clonidine Hcl] PO TID GRACY Non-Formulary Medication 20 mg 05/27/18 09:00 Dicyclomine Hcl [Dicyclomine Hcl] PO QID GRACY Non-Formulary Medication 120 mg 05/27/18 09:00 Diltiazem Hcl [Diltiazem Hcl] PO BID GRAC[facility] Ondansetron HCl 4 mg 05/27/18 05:24 Zofran 4 Mg/2 Ml IVP Q6H PRN Nausea / Vomiting Sodium Chloride 1 syr 05/27/18 04:08 Saline Flush IVF PRN PRN To flush IV - Family History Past Family History: Mother with ETOH abuse, CVA, DM2, GI disease, hyperthyroid. Did not report other family history. - Social History Past Social History: No ETOH, no drugs, former smoker. Lives with she cares for him. He is s/p stroke. - Vital Signs Temperature: 99.1 F Pulse Rate: 97 Respiratory Rate: 20 Blood Pressure: 156/89 O2 Sat by Pulse Oximetry: 95 - Body Composition Height: 5 ft 3 in Weight: 240 lb Body Mass Index (BMI): 42.5 - Physical Examination HEENT: Constitutional: Appearance-No acute distress, Consistent with stated age. Orientation- Oriented x 3, alert Gait-Arrived in WC, not observed. Build and Nutrition- Morbidly obese AAF General- Patient is pleasant and cooperative with the interview and exam. Integumentary: General-No rashes, ulcers or lesions. Palpation- Normal skin moisture/turgor. Skin is warm to touch, appropriate. Capillary refill is normal bilateral Upper and lower extremity. With Nurse Rae in room skin appears okay. Buttock reviewed, sacral region reviewed, abdomen and suprapubic region no breakdown. NO breakdown bilateral LE. Foot health avg, mild callus. NOrmal DP pulses, sensation intact. Scar right knee from replacement. Head/Neck: Head- normocephalic and atraumatic. Neck- without visible/palpable lumps or pulsations. Palpation- No bony tenderness about head/neck along frontal, occipital, temporal, parietal, mastoid, jawline, zygoma, orbit or any other location. NO temporal artery tenderness. No TMJ tenderness. Neck Supple. Thyroid-No thyromegaly, no nodules Eye: Bilaterally PERRLA, EOMI. No discharge. Upper and lower eyelids are normal. Sclera/conjunctiva normal without discharge. Cornea is normal and clear. Lens is normal. Eyeball appears normal. No ciliary flushing, no conjunctival injection. ENMT: Pinna- normal without tenderness or erythema. External auditory canal Left- normal without erythema or discharge, no excessive cerumen. External auditory canal Right-normal without erythema or discharge, no excessive cerumen. TM left- Sheppard/pearly, normal light reflex and anatomy TM Right- Sheppard/ pearly, normal light reflex and anatomy Hearing Assessment-normal to conversational speech. Nose and sinus- No sinus tenderness along frontal/ maxillary region. External appearance normal and midline. Nares- bilateral quiet airflow, mild clear discharge. Nasal mucosa- No bleeding noted and no ulcerations observed. Erythematous, Turbinates boggy. Lips- normal color, moist without cracks/lesions Oral Cavity/Palate- hard/soft palate intact without lesions, oral mucosa pink and moist.Salivary glands- Non tender to palpation CHEST/LUNG: Inspection- symmetric chest wall no pectus deformity. Normal effort , no distress, no use of accessory muscles. Palpation- nontender sternum, ribline. No abnormal pulsations. Auscultation- Breath sounds normal throughout all lung william. Normal tracheal sounds, Normal bronchial sounds overlying sternum, Bronchovessicular sounds normal between scapulae posteriorly, Normal vessicular breath sounds heard throughout periphery. Lungs are clear today. Adventitious sounds- No wheezes, rales, rhonchi. CARDIOVASCULAR: Carotid artery- normal, no bruits or abnormal pulsations. Jugular vein- no pulsations. Palpation/Percussion- Normal PMI, no palpable thrill Auscultation- Regular rate and rhythm. No murmur noted in sitting, supine positions. Extremities- no digital clubbing, cyanosis, edema, increased warmth. ABDOMEN: Inspection- normal and no visible pulsations. Normal contour. Auscultation- Bowel sounds normal, no abdominal bruits. Palpation/Percussion- soft, tender, epigastric LUQ, no rebound tenderness, no rigidity (guarding), no jar tenderness, no masses. Liver-no hepatomegaly, Spleen no splenomegaly, Peripheral Vascular: Upper extremity Left- Normal temperature with pink nailbeds and no ulcerations. Upper extremity Right- Normal temperature with pink nailbeds and no ulcerations. Lower extremity- Normal temperature with pink nailbeds and no ulcerations. DP pulses 2+ bilaterally. Pedal hair reduced. Normal capillary refill. Edema- No edema. Musculoskeletal: Generalized-No generalized swelling or edema of extremities, no digital clubbing or cyanosis, neurovascularly intact all four extremities. Upper extremity- Symmetrical posture. No visible deformity. Normal sensation along medial and lateral upper extremity proximally and distally. NO tenderness overlying shoulder, lateral/medial epicondyle. Ethanol Operator 5/5 and strength 5/5 bilateral UE. Elbow palpated, no tenderness overlying olecranon. Normal supination, pronation to active/passive ROM and to resisted rotation. Bicep insertion/tricep insertion appear normal without obvious pathology. Rotator cuff evaluated and intact. Normal wrist ROM bilaterally. Normal hand movement, intrinsic muscles of hands normal. No tenderness to palpation of hands/wrists/ elbows. Lower extremity- Hip: Not tender to palpation, no pain, no swelling, edema or erythema of surrounding tissue, normal strength and tone. Normal appearing hip ROM bilaterally without pain. Knee: Knee ROM normal. No tenderness overlying trochanters, no tenderness about patella, quad tendon, patellar tendon. No tenderness at tibial tuberosity. Spine/Ribs- No deformities, masses or tenderness, no known fractures, normal strength, Normal ROM. Normal stability No tenderness along C/T/L spine. Normal appearing ROM about spine. Neurological: General- Moves all 4 extremities symmetrically. Symmetrical face and body posture. Cranial nerves- individually evaluated II-XII and intact. PERRLA, Normal EOMI, visual/special senses appear intact, Face is symmetrical and normal sensation/movement, normal tongue, normal strength/posture of neck musculature. Reflexes- intact with DTR 2+ patellar, Achilles, bicep, brachial, tricep. Ankle clonus normal with 2 beats. Strength- 5/5 bilateral UE and LE. Soft touch- intact bilateral UE and LE. Temperature sensation- intact bilateral UE and LE. Neuropsych: Oriented- Person, place, time. (AAOx3), Mood/affect- normal and congruent. Able to articulate well. Speech-Normal speech, normal rate, normal tone, normal use of language, volume and coherence. Thought content- normal with ability to perform basic computations and apply abstract thought/reason. Associations- intact, no SI/HI, no hallucinations, delusions, obsessions. Judgment/insight- Appropriate. Memory-Recall intact, remote and recent memory intact. Knowledge- Age appropriate fund of knowledge, concentration and attention span normal. Lymphatic: Head/Neck- normal size and non tender to palpation. Axillary- normal size and non tender to palpation. Femoral and Inguinal- normal size and non tender to palpation. - Lab/Tests/Diagnostic Imaging Lab/Tests/Diagnostic Imaging: Laboratory Last Values WBC 9.20 K/ul (4.6-10.2) 05/27/18 04:57 RBC 4.31 10^6/ul (4.20-5.40) 05/27/18 04:57 Hgb 12.6 g/dl (12.0-16.0) 05/27/18 04:57 Hct 37.7 % (37.0-47.0) 05/27/18 04:57 MCV 87.5 fl (81.0-99.0) 05/27/18 04:57 MCH 29.2 pg (27.0-31.0) 05/27/18 04:57 MCHC 33.4 (31.8-35.4) 05/27/18 04:57 RDW Coeff of [place] 12.4 % (11.6-14.8) 05/27/18 04:57 Plt Count 285 10^3/uL (140-440) 05/27/18 04:57 Immature Gran % (Auto) 0.3 % (0.0-5.0) 05/27/18 04:57 Neut % (Auto) 46.1 05/27/18 04:57 Lymph % (Auto) 47.5 (10.0-50.0) 05/27/18 04:57 [place] % (Auto) 5.8 (0-10) 05/27/18 04:57 Eos % (Auto) 0.1 % (0.0-7.0) 05/27/18 04:57 Baso % (Auto) 0.2 % (0.0-3.0) 05/27/18 04:57 Immature Gran # (Auto) 0.0 (0.0-1.0) 05/27/18 04:57 Neut # (Auto) 4.2 K/ul (2.0-6.9) 05/27/18 04:57 Lymph # (Auto) 4.4 K/uL (0.60-3.4) H 05/27/18 04:57 [place] # (Auto) 0.5 K/uL (0.4-2.0) 05/27/18 04:57 Eos # (Auto) 0.0 K/ul (0.0-0.7) 05/27/18 04:57 Baso # (Auto) 0.0 K/uL (0-0.2) 05/27/18 04:57 Puncture Site Rrad 05/27/18 04:59 O2 Saturation 97.0 % (95-100) 05/27/18 04:59 ABG pH 7.530 (7.35-7.45) H* 05/27/18 04:59 ABG pCO2 35.2 mmHg (35-45) 05/27/18 04:59 ABG pO2 84.0 mmHg (85-100) L 05/27/18 04:59 ABG HCO3 29.4 (22.0-26.0) H 05/27/18 04:59 ABG Total CO2 30 (22.0-28.0) H 05/27/18 04:59 ABG Base Excess 7 (-2.0-2.0) H 05/27/18 04:59 Sumeet Test + 05/27/18 04:59 FiO2 % 21.0 % 05/27/18 04:59 Sodium 134.7 mmol/L (134.5-145) 05/27/18 04:57 Potassium 2.58 mmol/L (3.5-5.1) L* 05/27/18 04:57 Chloride 93.6 mmol/L (98-107) L 05/27/18 04:57 Carbon Dioxide 32.4 mmol/L (22-30.0) H 05/27/18 04:57 Anion Gap 11.28 05/27/18 04:57 BUN 25.8 mg/dL (7-17) H 05/27/18 04:57 Creatinine 1.56 mg/dL (0.60-1.30) H 05/27/18 04:57 Estimated GFR (MDRD) 40.00 mL/min 05/27/18 04:57 BUN/Creatinine Ratio 16.53 05/27/18 04:57 Glucose 356.5 mg/dL (74-106) H 05/27/18 04:57 Lactic Acid 1.62 mmol/L (0.7-2.1) 05/27/18 04:57 Calcium 9.53 mg/dL (8.4-10.2) 05/27/18 04:57 Total Bilirubin 0.33 mg/dL (0.2-1.3) 05/27/18 04:57 AST 40.3 U/L (14-36) H 05/27/18 04:57 ALT 21.2 U/L (0-35) 05/27/18 04:57 Alkaline Phosphatase 128.0 U/L (53-141) 05/27/18 04:57 Total Protein 8.07 g/dL (6.3-8.2) 05/27/18 04:57 Albumin 4.33 g/dL (3.5-5.0) 05/27/18 04:57 Globulin 3.74 05/27/18 04:57 Albumin/Globulin Ratio 1.15 05/27/18 04:57 Amylase 80.6 U/L (30-110) 05/27/18 04:57 Lipase 136.7 U/L (23-300) 05/27/18 04:57 Procalcitonin < 0.05 ng/mL (0.09) 05/27/18 04:57 Acetone, Qual None (NONE) 05/27/18 04:53 A1C 11.02 05/25/18 CT abd pelvis 05/27/18 Stable chronic post op findings. No acute inflammatory process identified witin abdomen or pelvis within limitation of non contrast CT. CT Sinuses 05/27/18 ABG interpretation: Primary Respiratory Alkalosis, Chronic, with Secondary Metabolic Alkalosis - Assessment (1) Hyperglycemia due to type 2 diabetes mellitus Status: Acute Code(s): E11.65 - TYPE 2 DIABETES MELLITUS WITH HYPERGLYCEMIA SNOMED Code(s): 83731777, 380089619220185 (2) Hypokalemia Status: Acute Code(s): E87.6 - HYPOKALEMIA SNOMED Code(s): 62658611 (3) BMI greater than 40 Status: Chronic Code(s): JJM0468 - SNOMED Code(s): 059602363 (4) Former smoker Status: Chronic Code(s): Z87.891 - PERSONAL HISTORY OF NICOTINE DEPENDENCE SNOMED Code(s): 0258470 (5) STEPHEN (acute kidney injury) Status: Acute Code(s): N17.9 - ACUTE KIDNEY FAILURE, UNSPECIFIED SNOMED Code (s): 06048603 (6) Gastroenteritis Status: Acute Code(s): K52.9 - NONINFECTIVE GASTROENTERITIS AND COLITIS, UNSPECIFIED SNOMED Code(s): 16962474 (7) GERD (gastroesophageal reflux disease) Status: Chronic Code(s): K21.9 - GASTRO-ESOPHAGEAL REFLUX DISEASE WITHOUT ESOPHAGITIS SNOMED Code(s): 581481963 (8) Sinusitis Status: Acute Code(s): J32.9 - CHRONIC SINUSITIS, UNSPECIFIED SNOMED Code(s) : 74184853 Qualifiers: Chronicity: acute - Plan Plan: Diabetes A1C goal 7-8% w/ Hyperglycemia: Patient admitted to SCU-1 by me this am around 6 am. I reviewed note from [facility] 05/26/18 f/u for elevated blood glucose. BG 557.4 a1c 11.01 pm of 05/25/18. He did talk with me and I noted she needed to be called, instructed to go to ER if worsening and seen next day if stable to get her on insulin. I was unaware of ARF w/ CR 1.61 and GFR 39 with drop from normals on 02/06/18. Office accucheck 05/26/18 was 352. Polydipsia noted in his note. Never started abx. H/o GDM. He did order C-Peptide, insulin levels and then started her on metformin and januvia. Dose of 50mg januvia reasonable with her EGFR in 30's range. However metformin will be d/c while she is has GFR <45, it is not recommended to start patients on this agent. She is currently not on francisco-I. She is candidate for pneumonia vaccine. I will use 0.2unit/kg/day insulin level for her. At 240 lb that would equate to 21 units. I will give her 10 units of lantus in hospital and I will divide the other 10 units and give her 3 units of meal time insulin with each meal and correct for 1 unit additional for every 50 above 150. I will have q 2 hour accucheck and we will use same correctional insulin. NO drip at present as she is already ~350. I will stop metformin due to renal function. Newly dx diabetic, A1C >10. Discussed with her at length that she will likely need insulin for a while and will be able to transition to oral medications once stabilized. I will likely start her on Basaglar/admelog as OP and then transition to basaglar and trulicity and jardiance to help with weight loss. - Admit inpatient SCU1 - Accucheck q 2 hours - K+ to be monitored BID. - Fluis 100/hr NS+20 K+CL- - Pneumonia vaccine - Lantus 10 units now - 3 units with meals +1 for every 50 >150 (up to 4 more units) - Humalog 1 unit for every 5 above 150 every 2 hours (up to max of 350). - Calculate total daily insulin, adjust lantus. - continue francisco-I STEPHEN: Fluid hydration should help with STEPHEN. - Continue NS - Zofran for N/V/D - Monitor labs. Sinusitis: MInimal symptoms, would agree with decision to d/c abx. Monitor. - Continue flonase. hypokalemia: She has a small IV in at present 24 G LAC that we will need to protect. [facility] has 100cc +20 Kcl running at present and I will have her take K+ CL PO as well with meals 20meq. This should help to increase by about 0.1 for every 10-20meq that she receives. Gastroenteritis/Abdominal pain: She has not had any V/D in hospital so far. + Nausea and thus we will give zofran and encourage liquid diet. GERD: Established/Chronic problem. We reviewed SE of PPI. We have discussed R/ B/A to these agents. We reviewed latest news regarding bone loss, regarding risks for Cdiff, ND risks, Bacterial peritonitis, interstitial nephritis, Pneumonia risks due to bed bug exterminator use of PPI. - Continue home PPI. DVT PROPHY: - Lovenox 40mg while in hospital. Home meds: Continue Diet: - Clear liquid 1800 kcal ADA. - Advance tomorrow if tolerated today. Activity: - Up with assist - Use walker. Need Influenza/Pneumonia Vaccine: Declined by patient. R/B/A d/w patient. BMI 42.5: Federal guidelines recommend that people under the age of 65 should have a BMI of 18.5-24.9 and people age 65 and older should have a BMI of 23-30. Morbid obesity is defined as >100 lb overweight or BMI >40. The patient BMI is outside the recommended range and we recommended/discussed today to utilize a diet/exercise program to get back into the appropriate range. Today we encouraged roughly a 1 lb per week weight loss with initial goal of 5% weight loss. The initial step is to document everything that is consumed into a food diary. Studies have shown that patients can lose up to 2x the weight by keeping track of foods. We discussed BEE today and discussed reasonable goal to realize weight loss. Discussed if eating out for a meal, consider cutting food in half and placing into to-go container. Individually portion any foods coming into the home based on package. Current problem is not as much a what she is eating vs a how much she is eating problem. Consider using smaller plates. Consider drinking 12 oz of water 30 minutes before meal as way to suppress appetite. Cut back on soft drinks/juices. Discussed 1 can of regular soft drink has roughly 150-170 Calories per day. *Increase exercise as able. It is recommended to try to exercise minimum 10 minutes 5 days per week. The goal over the next 2-4 weeks is to walk 30 minutes per day 5 days per week at pace difficult to hold conversation. Would definitly consider referral to airworthiness safety inspector and bariatrics. Code Status: DNR Dispo: 70 minutes spent on admission today d/w patient last few days of visits, discussing insulin and plan. Reviewed DM neuropathy, reviewed diebetic retinopathy, discussed need for regular f/u. REviewed A1C goal. Discussed HTN and BP goal. Discussed microalbumin. We will tune her up over next 1-2 days. Expect to d/c patient 05/29/18 if she continues to improve. Watch K+, watch electrolytes. INsulin onboard. She needs ~21-32 units per day to start based on calculations and insulin naive state. I will start low and increase over next few days based on sugars. S/sx of hypoglycemia d/w patient. Addendum: 15:00 05/27/18 Potassium in lab up to 3.0. She has had glucose spike after meal. I will increase her by 10 units lantus (total 20). Increase accucheck correctional by 1. Now 2 units for every 50 above 150. Meal time baseline 5 units with correction of 1 for every 50 above 150. Accuchecks: 327 630, 292 10:25, 317 11:40, 500 14:00, 449 14:46, 362 16:00.
[2018-05-27] MEDS ORDERED: LANTUS SUBCUT STA ×2 (08:25→14:59)
[2018-05-27] MEDS ORDERED: HUMALOG SUBCUT STA (08:27)
[2018-05-27] MEDS ORDERED: ZOFRAN ODT PO PRN (08:29)
[2018-05-27] MEDS ORDERED: DICYCLOMINE HCL 20 MG PO SCH (09:00)
[2018-05-27] MEDS ORDERED: LOVENOX SUBCUT SCH (09:00)
[2018-05-27] MEDS ORDERED: CLONIDINE HCL PO SCH (09:00)
[2018-05-27] MEDS ORDERED: DILTIAZEM HCL 120 MG PO SCH (09:00)
[2018-05-27] MEDS: CRESTOR PO SCH (09:37)
[2018-05-27] MEDS: NEURONTIN PO SCH ×3 (09:37→20:51)
[2018-05-27] MEDS: PROTONIX PO SCH ×2 (09:37→16:12)
[2018-05-27] MEDS: NORCO 7.5-325 PO SCH ×3 (09:37→20:52)
[2018-05-27] MEDS: HYDROCHLOROTHIAZIDE PO SCH (09:37)
[2018-05-27] MEDS: CARDIZEM PO SCH ×2 (09:37→20:51)
[2018-05-27] MEDS: BENTYL PO SCH ×4 (09:37→20:51)
[2018-05-27] MEDS: CATAPRES PO SCH ×3 (09:38→20:52)
[2018-05-27] MEDS: COREG PO SCH ×2 (09:38→19:09)
[2018-05-27] MEDS: REGLAN IVP SCH ×3 (09:41→19:02)
[2018-05-27] MEDS ORDERED: HUMALOG SUBCUT PRN ×2 (10:51→11:54)
[2018-05-27] MEDS ORDERED: HUMALOG SUBCUT SCH (12:00)
[2018-05-27] MEDS: K-DUR PO SCH ×2 (12:40→19:01)
[2018-05-27] MEDS: SODIUM CHLORIDE 0.9%-KCL 20 MEQ 1,000 ML IV SCH ×2 (14:41→15:42)
[2018-05-27] MEDS ORDERED: LANTUS SUBCUT ONE (15:30)
[2018-05-27] MEDS: HUMALOG SUBCUT PRN ×3 (16:09→22:23)
[2018-05-27] MEDS: HUMALOG SUBCUT SCH (18:25)
[2018-05-28] MEDS: REGLAN IVP SCH ×5 (00:01→23:36)
[2018-05-28] MEDS: SODIUM CHLORIDE 0.9%-KCL 20 MEQ 1,000 ML IV SCH ×2 (00:32→12:17)
[2018-05-28] MEDS: HUMALOG SUBCUT PRN (06:11)
[2018-05-28] MEDS: PROTONIX PO SCH ×2 (06:13→17:22)
[2018-05-28] MEDS: BENTYL PO SCH ×4 (08:10→22:43)
[2018-05-28] MEDS: CATAPRES PO SCH ×3 (08:10→22:42)
[2018-05-28] MEDS: HYDROCHLOROTHIAZIDE PO SCH (08:10)
[2018-05-28] MEDS: CRESTOR PO SCH (08:10)
[2018-05-28] MEDS: CARDIZEM PO SCH ×2 (08:10→22:43)
[2018-05-28] MEDS: NEURONTIN PO SCH ×3 (08:10→22:43)
[2018-05-28] MEDS: K-DUR PO SCH ×3 (08:11→17:23)
[2018-05-28] MEDS: NORCO 7.5-325 PO SCH ×3 (08:12→22:43)
[2018-05-28] MEDS: LOVENOX SUBCUT SCH (08:12)
[2018-05-28] MEDS: COREG PO SCH ×2 (08:12→17:22)
[2018-05-28] MEDS: HUMALOG SUBCUT SCH ×3 (08:15→17:23)
--- NOTE | 2018-05-28 09:13 | PCM.PROG ---
Subjective: 67 yo AAF HD #2 admitted newly dx DM 2 w/ hyperglcyemia, hypokalemia, abd pain w / suspected gastroenteritis, morbid obesity BMI 42.5, Essential HTN controlled w / goal of <140/90. Talked with AM nurse this am, reveiwed ON tele and remained NSR. EKG completed/reviewed and appears okay no e/o K+ mediated arrhythmia. Reviewed sugar log 05/27/18 @ 2000 was 203, @2200 was 170. Starting this am 00:00 was 124, @0200 110, @0400 was 130, @0600 was 156 and at 0800 138. Sugars were looking markedly superior to admit. Urine output has not been strictly monitored. She had recorded void and 500 out for the 8 hour shift. 0.57 ml/kg/hr output. Vitals remained normal and stable. She had a total of 50 units of insulin yesterday, 20 total of glargine and 30 of humalog mixed between q 2 hour accucheck and meal insulin. She did better yesterday pm after I increased her from 10 units lantus and humalog 3 with meals + 1 per 50 >150 correctional w/ same correctional q 2 hours to the new dosing of 20 units lantus and mealtime 5 baseline plus 2 units per 50 above 150. I talked with nursing and I will adjust her insulin today to be a total of 30 of lantus and 5 units with meals plus correctional. We will stop the q 2 hour accuchecks, patient was very happy to hear this. Her K+ did increase to 3.0 yesterday PM but back <3.0 today. She had a BMP today instead of a CMP and her Ca2+ is just a little low. AM labs today showed a drop in WBC from 7.03 to 6.66 and a hgb drop to 10.7 from 11.8. Plt dropped to 228 from 263. These are still okay/ stable and will be monitored. Sodium is fine at 137, K+ now at 2.96 down from 3. Her creatinine has imroved from 1.57 to 1.28 and her calcium is mildly low at 8.24. I have ordered new labs for 1200 CMP, Mg++ and Phos. We will make sure that her panel is improving. If Ca++ remains low, we will consider oral replacement. We will continue tele, she c/o IV irritation left handed and limiting her ability to use her arm. I will saline lock her IV site, continue oral K+ but increase this to 20meq TID and we will repeat labs this afternoon. She requested change in diet, I will allow this to go to full. She has had no N /V/D since being in room. She has had no BM/Diarrhea. She has no abd pain now and vitals look great. She was surprised at how well she felt this quickly. Again as noted, we talked with ON nurse, AM nurse in room during this event. We will make the above adjustments and if she continues to remain stable, we will d/c her home. TOday I did bring in insulin pen demo and I showed her how to prime, how to utilize and how to administer an injection of insulin. Using practice skin/pen she gave shot of 4 units, 10 units, 5 units into the fake skin , each time demonstrating how to use the pen herself. WE reviewed which pens need to be in fridge, which should remain out and discussed length of time before changing to new pen. She was scared of the insulin but not anymore. She did not realize the needles were tiny and that the pens were convenient. Discussed again goal for her is to likely use Basaglar/jardiance/trulicity ultimately but for now insulin is what we will use. We will consider resuming metformin, but I want to wait for her renal function to maintain baseline state. GFR today is 51 and reasonable to use this drug again. REVIEW OF SYMPTOMS: (Positives bolded) General: weight loss, fever, chills, night sweats, fatigue, appetite loss HEENT: blurry vision, eye pain, eye discharge, dry eyes, decreased vision, sore throat tinnitus, bloody nose, hearin gloss, sinus pain/pressure, ear pain/ pressure. Respiratory: shortness of breath, cough, hemoptysis, wheezing, pleurisy, Cardiovascular: chest pain, PND, palpitation, edema, orthopnea, syncope, swelling of extremities Gastro: Nausea, vomiting, diarrhea, hematemesis, abdominal pain, constipation Genito: hematuria, dysuria, glycosuria, hesitancy, frequency, incontinence [place]: Arthralgia Chronic, myalgia, muscle weakness, joint swelling, NSAID use Skin: rash, pruritis, sores, nail changes, skin thickening, change in wart/mole , itching, rash, new lesions, pruritus, nail changes Neuro: Migraine, numbness, ataxia, tremor, vertigo, weakness, memory loss, Irritability, dizziness +BARAJAS this am. Endocrine: excessive thirst, polyuria, cold intolerance, heat intolerance, goiter Psychiatric: depression, anxiety, anti-depressants, alcohol abuse, drug abuse, insomnia, change in sleep pattern and mood changes Heme/lymph: easy bruising, bleeding gums, blood clots, swollen glands, lymphedema, Allergic/immune: allergic rhinitis, hay fever, asthma, hives Feels much better today. Denies N/V/D, chest pain, SOA, URI symptoms, GI symptoms, symptoms. Chronic MSK pain. Objective: Vital Signs - 24 hr 05/27/18 05/27/18 05/27/18 10:00 14:00 18:00 Temperature 98.1 F 98.7 F Pulse Rate 97 H 97 H 69 Respiratory 16 18 20 Rate Blood Pressure 120/77 123/76 115/68 O2 Sat by Pulse 91 L 91 L 92 L Oximetry 05/27/18 05/27/18 05/28/18 20:00 22:00 02:00 Temperature 98.6 F Pulse Rate 65 62 Respiratory 20 17 20 Rate Blood Pressure 108/64 99/63 O2 Sat by Pulse 93 L Oximetry 05/28/18 05/28/18 05:10 09:02 Temperature 98 F 99.1 F Pulse Rate 77 97 H Respiratory 18 20 Rate Blood Pressure 135/65 156/89 H O2 Sat by Pulse 99 95 Oximetry HEENT: Constitutional: Appearance-No acute distress, feels much better, awake alert oriented and pensive. Asked great questions today, surprised at how well she felt regarding her health. Appears Consistent with stated age. Orientation- Oriented x 3, alert Build and Nutrition- Morbidly obese AAF General- Patient is pleasant and cooperative with the interview and exam. Integumentary: General-No rashes, ulcers or lesions. Scar right knee from replacement. Head/Neck: Head- normocephalic and atraumatic. Neck- without visible/palpable lumps or pulsations. Palpation- No bony tenderness about head/neck along frontal, occipital, temporal, parietal, mastoid, jawline, zygoma, orbit or any other location. NO temporal artery tenderness. No TMJ tenderness. Neck Supple. Thyroid-No thyromegaly, no nodules Eye: Bilaterally PERRLA, EOMI. No discharge. Upper and lower eyelids are normal. Sclera/conjunctiva normal without discharge. Cornea is normal and clear. Lens is normal. Eyeball appears normal. No ciliary flushing, no conjunctival injection. ENMT: Nose and sinus- No sinus tenderness along frontal/maxillary region. External appearance normal and midline. Nares- bilateral quiet airflow, mild clear discharge. Nasal mucosa- No bleeding noted and no ulcerations observed. Erythematous, Turbinates boggy. Lips- normal color, moist without cracks/ lesions Oral Cavity/Palate- hard/soft palate intact without lesions, oral mucosa pink and moist.Salivary glands- Non tender to palpation CHEST/LUNG: Inspection- symmetric chest wall no pectus deformity. Normal effort , no distress, no use of accessory muscles. Palpation- nontender sternum, ribline. No abnormal pulsations. Auscultation- Breath sounds normal throughout all lung william. Normal tracheal sounds, Normal bronchial sounds overlying sternum, Bronchovessicular sounds normal between scapulae posteriorly, Normal vessicular breath sounds heard throughout periphery. Lungs are clear today. Adventitious sounds- No wheezes, rales, rhonchi. CARDIOVASCULAR: Carotid artery- normal, no bruits or abnormal pulsations. Jugular vein- no pulsations. Palpation/Percussion- Normal PMI, no palpable thrill Auscultation- Regular rate and rhythm. No murmur noted in sitting, supine positions. Extremities- no digital clubbing, cyanosis, edema, increased warmth. ABDOMEN: Inspection- normal and no visible pulsations. Normal contour. Auscultation- Bowel sounds normal, no abdominal bruits. Palpation/Percussion- soft, non-tender, no rigidity (guarding), no jar tenderness, no masses. Liver- no hepatomegaly, Spleen no splenomegaly, Peripheral Vascular: Upper extremity Left- Normal temperature with pink nailbeds and no ulcerations. Upper extremity Right- Normal temperature with pink nailbeds and no ulcerations. Lower extremity- Normal temperature with pink nailbeds and no ulcerations. DP pulses 2+ bilaterally. Pedal hair reduced. Normal capillary refill. Edema- No edema. Musculoskeletal: Generalized-No generalized swelling or edema of extremities, no digital clubbing or cyanosis, neurovascularly intact all four extremities. Neurological: General- Moves all 4 extremities symmetrically. Symmetrical face and body posture. Cranial nerves- individually evaluated II-XII and intact. PERRLA, Normal EOMI, visual/special senses appear intact, Face is symmetrical and normal sensation/movement, normal tongue, normal strength/posture of neck musculature. Neuropsych: Oriented- Person, place, time. (AAOx3), Mood/affect- normal and congruent. Able to articulate well. Speech-Normal speech, normal rate, normal tone, normal use of language, volume and coherence. Thought content- normal Associations- intact, no SI/HI, no hallucinations, delusions, obsessions. Judgment/insight- Appropriate. Lymphatic: Head/Neck- normal size and non tender to palpation. Laboratory Last Values WBC 6.66 K/ul (4.6-10.2) 05/28/18 05:20 RBC 3.66 10^6/ul (4.20-5.40) L 05/28/18 05:20 Hgb 10.7 g/dl (12.0-16.0) L 05/28/18 05:20 Hct 33.2 % (37.0-47.0) L 05/28/18 05:20 MCV 90.7 fl (81.0-99.0) 05/28/18 05:20 MCH 29.2 pg (27.0-31.0) 05/28/18 05:20 MCHC 32.2 (31.8-35.4) 05/28/18 05:20 RDW Coeff of [place] 13.1 % (11.6-14.8) 05/28/18 05:20 Plt Count 228 10^3/uL (140-440) 05/28/18 05:20 Immature Gran % (Auto) 0.2 % (0.0-5.0) 05/28/18 05:20 Neut % (Auto) 25.0 05/28/18 05:20 Lymph % (Auto) 66.5 (10.0-50.0) H 05/28/18 05:20 [place] % (Auto) 6.9 (0-10) 05/28/18 05:20 Eos % (Auto) 1.1 % (0.0-7.0) 05/28/18 05:20 Baso % (Auto) 0.3 % (0.0-3.0) 05/28/18 05:20 Immature Gran # (Auto) 0.0 (0.0-1.0) 05/28/18 05:20 Neut # (Auto) 1.7 K/ul (2.0-6.9) L 05/28/18 05:20 Lymph # (Auto) 4.4 K/uL (0.60-3.4) H 05/28/18 05:20 [place] # (Auto) 0.5 K/uL (0.4-2.0) 05/28/18 05:20 Eos # (Auto) 0.1 K/ul (0.0-0.7) 05/28/18 05:20 Baso # (Auto) 0.0 K/uL (0-0.2) 05/28/18 05:20 Puncture Site Rrad 05/27/18 04:59 O2 Saturation 97.0 % (95-100) 05/27/18 04:59 ABG pH 7.530 (7.35-7.45) H* 05/27/18 04:59 ABG pCO2 35.2 mmHg (35-45) 05/27/18 04:59 ABG pO2 84.0 mmHg (85-100) L 05/27/18 04:59 ABG HCO3 29.4 (22.0-26.0) H 05/27/18 04:59 ABG Total CO2 30 (22.0-28.0) H 05/27/18 04:59 ABG Base Excess 7 (-2.0-2.0) H 05/27/18 04:59 Sumeet Test + 05/27/18 04:59 FiO2 % 21.0 % 05/27/18 04:59 Sodium 137.0 mmol/L (134.5-145) 05/28/18 05:20 Potassium 2.96 mmol/L (3.5-5.1) L 05/28/18 05:20 Chloride 101.4 mmol/L (98-107) 05/28/18 05:20 Carbon Dioxide 32.0 mmol/L (22-30.0) H 05/28/18 05:20 Anion Gap 6.56 05/28/18 05:20 BUN 20.9 mg/dL (7-17) H 05/28/18 05:20 Creatinine 1.28 mg/dL (0.60-1.30) 05/28/18 05:20 Estimated GFR (MDRD) 51.00 mL/min 05/28/18 05:20 BUN/Creatinine Ratio 16.32 05/28/18 05:20 Glucose 146.2 mg/dL (74-106) H D 05/28/18 05:20 Lactic Acid 1.62 mmol/L (0.7-2.1) 05/27/18 04:57 Calcium 8.24 mg/dL (8.4-10.2) L 05/28/18 05:20 Total Bilirubin 0.33 mg/dL (0.2-1.3) 05/27/18 04:57 AST 40.3 U/L (14-36) H 05/27/18 04:57 ALT 21.2 U/L (0-35) 05/27/18 04:57 Alkaline Phosphatase 128.0 U/L (53-141) 05/27/18 04:57 Total Protein 8.07 g/dL (6.3-8.2) 05/27/18 04:57 Albumin 4.33 g/dL (3.5-5.0) 05/27/18 04:57 Globulin 3.74 05/27/18 04:57 Albumin/Globulin Ratio 1.15 05/27/18 04:57 Amylase 80.6 U/L (30-110) 05/27/18 04:57 Lipase 136.7 U/L (23-300) 05/27/18 04:57 Procalcitonin < 0.05 ng/mL (0.09) 05/27/18 04:57 Urine Color Yellow (YELLOW) 05/27/18 09:55 Urine Clarity Clear (CLEAR) 05/27/18 09:55 Urine pH 6.0 (5-9) 05/27/18 09:55 Ur Specific [place] >=1.030 (1.005-1.030) 05/27/18 09:55 Urine Protein 2+ (NEGATIVE) 05/27/18 09:55 Urine Glucose (UA) Trace (NEGATIVE) 05/27/18 09:55 Urine Ketones Trace (NEGATIVE) 05/27/18 09:55 Urine Blood 2+ (NEGATIVE) 05/27/18 09:55 Urine Nitrite Negative (NEGATIVE) 05/27/18 09:55 Urine Bilirubin 1+ (NEGATIVE) 05/27/18 09:55 Urine Urobilinogen 0.2 (0.2) 05/27/18 09:55 Ur Leukocyte Esterase Negative (NEGATIVE) 05/27/18 09:55 Urine Microscopic RBC 2-5 (0-2) 05/27/18 09:55 Urine Microscopic WBC 0-2 (0-2) 05/27/18 09:55 Ur Squamous Epith Cells 2-5 (0-5) 05/27/18 09:55 Urine Bacteria 2+ (NOT PRESENT) 05/27/18 09:55 Hyaline Casts 0-2 (NOT PRESENT) 05/27/18 09:55 RBC Casts 0-2 (NOT PRESENT) 05/27/18 09:55 Acetone, Qual None (NONE) 05/27/18 04:53 Na/K Trends 05/27/18 05/27/18 05/28/18 Range/Units 04:57 12:30 05:20 Sodium 134.7 134.7 137.0 (134.5-145) mmol/L Potassium 2.58 L* 3.00 L 2.96 L (3.5-5.1) mmol/L H/H Trends 05/27/18 05/27/18 05/28/18 Range/Units 04:57 12:30 05:20 Hgb 12.6 11.8 L 10.7 L (12.0-16.0) g/dl Hct 37.7 36.4 L 33.2 L (37.0-47.0) % BUN/CR Trends 05/27/18 05/27/18 05/28/18 Range/Units 04:57 12:30 05:20 BUN 25.8 H 25.3 H 20.9 H (7-17) mg/dL Creatinine 1.56 H 1.57 H 1.28 (0.60-1.30) mg/dL No new imaging Urine culture pending. (1) Hyperglycemia due to type 2 diabetes mellitus Status: Acute Code(s): E11.65 - TYPE 2 DIABETES MELLITUS WITH HYPERGLYCEMIA SNOMED Code(s): 52206215 (2) Hypokalemia Status: Acute Code(s): E87.6 - HYPOKALEMIA SNOMED Code(s): 74183713 (3) BMI greater than 40 Status: Chronic Code(s): FUY7010 - SNOMED Code(s): 374141836 (4) Former smoker Status: Chronic Code(s): Z87.891 - PERSONAL HISTORY OF NICOTINE DEPENDENCE SNOMED Code(s): 9289928 (5) STEPHEN (acute kidney injury) Status: Resolved Code(s): N17.9 - ACUTE KIDNEY FAILURE, UNSPECIFIED SNOMED Code(s): 18289572 (6) Gastroenteritis Status: Acute Code(s): K52.9 - NONINFECTIVE GASTROENTERITIS AND COLITIS, UNSPECIFIED SNOMED Code(s): 21801078 (7) GERD (gastroesophageal reflux disease) Status: Chronic Code(s): K21.9 - GASTRO-ESOPHAGEAL REFLUX DISEASE WITHOUT ESOPHAGITIS SNOMED Code(s): 951403083 (8) Sinusitis Status: Acute Code(s): J32.9 - CHRONIC SINUSITIS, UNSPECIFIED SNOMED Code(s) : 71038073 (9) Hypocalcemia Status: Acute Code(s): E83.51 - HYPOCALCEMIA SNOMED Code(s): 3493799 Plan: Diabetes A1C goal 7-8% w/ Hyperglycemia: Hospital day 2 total insulin calculated last 24 and her sugars are looking much better. Total units ~50 units. Today I will increase to 30 units lantus and 5 units with meals. Stop Q2 hour accuchecks and move to [facility]HS. Plan to d/c her home tomorrow on basaglar and admelog with close f/u within next week. K+ and Ca++ are running low, I will work on these today. She is tolerating clears, will advance. Continue K+ replacement. She declined pneumonia vaccine. She is on statin crestor. BP is at goal of <140/90. Tele was good overnight. It appears her admission problems are resolving and stable and she would do well to be d/c tomorrow. - Continue Admit inpatient SCU1 - Accucheck q AC/HS - K+ to be rechecked w/ CMP at 1200 - Fluids held, saline lock. - Pneumonia vaccine declined - Lantus today 30 units now (20 units total yesterday) - 5 units with meals +2 for every 50 >150 - continue francisco-I STEPHEN: Resolving, cr 1.28 and GFR 50s. - Continue oral intake - Monitor w/ CMP 1200. Sinusitis: Minimal symptoms, continue flonase. Mild frontal BARAJAS - Tylenol PRN BARAJAS hypokalemia: Seemed to improve then slid back a little. NOw at 2.96. I will increase her today to TID PO K+CL 20meq w/ meals. Saline lock IV so she can use her left arm (left arm dominant). hypocalcemia: Cannot correct as only BMP ordered. I will repeat CMP at 1200 and calculate corrected calcium before treating a normal Ca++. Gastroenteritis/Abdominal pain: She has not had any V/D in hospital so far. + Nausea and thus we will give zofran and encourage liquid diet. GERD: Established/Chronic problem. - Continue home PPI. DVT PROPHY: - Lovenox 40mg while in hospital. Home meds: Continue Diet: - Advance to 1800 kcal ADA. Activity: - Up with assist - Use walker. Need Influenza/Pneumonia Vaccine: Declined by patient. R/B/A d/w patient. BMI 42.5: Addressed at admit. Weight loss encouraged. Code Status: DNR Dispo: 40 minutes spent on rounding today d/w patient last labs, data, tele, ekg , nursing information. Again Reviewed DM neuropathy, reviewed diabetic retinopathy, discussed need for regular f/u. Reviewed A1C goal. Discussed HTN and BP goal. Discussed microalbumin. We will likely d/c tomorrow if she continues to do this well. Still expect to d/c patient 05/29/18 if she continues to improve. Watch K+, Ca++ and remainder of electrolytes/renal fx. Insulin onboard. Today I taught how to use insulin pen, allowed her to practice 3x. She was afraid, no longer. S/sx of hypoglycemia again d/w patient. D/w patient need to keep sugars on hand.
[2018-05-28] MEDS ORDERED: LANTUS SUBCUT SCH ×2 (21:00)
[2018-05-29 05:57] VITALS: BP 139/72; TEMP 98.4
[2018-05-29] MEDS: REGLAN IVP SCH (06:35)
[2018-05-29] MEDS: PROTONIX PO SCH (06:37)
[2018-05-29] MEDS: CRESTOR PO SCH (09:04)
[2018-05-29] MEDS: BENTYL PO SCH (09:04)
[2018-05-29] MEDS: NEURONTIN PO SCH (09:04)
[2018-05-29] MEDS: CATAPRES PO SCH (09:05)
[2018-05-29] MEDS: K-DUR PO SCH (09:05)
[2018-05-29] MEDS: COREG PO SCH (09:05)
[2018-05-29] MEDS: CARDIZEM PO SCH (09:05)
[2018-05-29] MEDS: NORCO 7.5-325 PO SCH (09:05)
[2018-05-29] MEDS: HYDROCHLOROTHIAZIDE PO SCH (09:05)
[2018-05-29] MEDS: LOVENOX SUBCUT SCH (09:06)
[2018-05-29] MEDS: HUMALOG SUBCUT SCH (09:09)
--- NOTE | 2018-05-29 10:17 | PCM.DC ---
Final Diagnosis: Gastroenteritis (RESOLVED) Renal failure (Acute/RESOLVED) Hyperglycemia due to type 2 diabetes mellitus (Acute) Hypocalcemia (RESOLVED) Dehydration (Acute/RESOLVED) Hypokalemia (Acute): IMPROVING Sinusitis (Acute): IMPROVING BMI greater than 40 (Chronic) Former smoker (Chronic) GERD (gastroesophageal reflux disease) (Chronic) Mild anemia (ACUTE) IMPROVING (1) Hyperglycemia due to type 2 diabetes mellitus Status: Acute Code(s): E11.65 - TYPE 2 DIABETES MELLITUS WITH HYPERGLYCEMIA SNOMED Code(s): 03486493, 238935454129561 (2) Hypokalemia Status: Acute Code(s): E87.6 - HYPOKALEMIA SNOMED Code(s): 23609397 (3) BMI greater than 40 Status: Chronic Code(s): TZB1162 - SNOMED Code(s): 812636212 (4) Former smoker Status: Chronic Code(s): Z87.891 - PERSONAL HISTORY OF NICOTINE DEPENDENCE SNOMED Code(s): 8793610 (5) STEPHEN (acute kidney injury) Status: Resolved Code(s): N17.9 - ACUTE KIDNEY FAILURE, UNSPECIFIED SNOMED Code(s): 89346872 (6) Gastroenteritis Status: Resolved Code(s): K52.9 - NONINFECTIVE GASTROENTERITIS AND COLITIS, UNSPECIFIED SNOMED Code(s): 01204828 (7) GERD (gastroesophageal reflux disease) Status: Chronic Code(s): K21.9 - GASTRO-ESOPHAGEAL REFLUX DISEASE WITHOUT ESOPHAGITIS SNOMED Code(s): 269552949 (8) Sinusitis Status: Acute Code(s): J32.9 - CHRONIC SINUSITIS, UNSPECIFIED SNOMED Code(s) : 14817657 Qualifiers: Chronicity: acute (9) Hypocalcemia Status: Resolved Code(s): E83.51 - HYPOCALCEMIA SNOMED Code(s): 3615623 (10) Mild anemia Status: Acute Code(s): D64.9 - ANEMIA, UNSPECIFIED SNOMED Code(s): 596412332 Reason for Hospitalization: Nausea/Vomiting/Diarrhea, Hyperglycemia newly dx DM2 A1C >11, Recent sinusitis, morbid obesity, Essential HTN, hypokalemia Prognosis at Discharge: Good, markedly improved. Stable glucose. URI symptoms resolving. No N/V/D since admission. Condition at Discharge: Improved. Glucose log for 05/28/18: 124, 110, 130, 156, 138, 136, 181, 242, 179. Medications at Discharge: Ambulatory Orders Medication Instructions Recorded Hydrocodone/Acetaminophen 1 each PO TID 04/08/17 [Hydrocodone-Acetamin 7.5-325] Blood Sugar Diagnostic [Blood 1 each MC BID 05/27/18 Glucose Test Strip] Clotrimazole/Betamethasone Dip 1 applic TP BID PRN 05/27/18 [Clotrimazole-Betamethasone Crm] Gabapentin 300 mg PO TID 05/27/18 Lorazepam 1 mg PO BID PRN 05/27/18 Ondansetron [Zofran Odt] 4 mg PO Q8H PRN 05/27/18 Polyethylene Glycol 3350 [Miralax] 17 gm PO DAILY PRN 05/27/18 Simethicone [Gas-X] 125 mg PO DIRECTED PRN 05/27/18 Blood Sugar Diagnostic [Blood 1 each MC QID 30 Days #100 strip 05/29/18 Glucose Test] Ciprofloxacin HCl [Cipro] 500 mg PO Q12HR 3 Days #6 tablet 05/29/18 Insulin Glargine,Hum.rec.anlog 30 unit SQ DAILY 30 Days #5 05/29/18 [Basaglar Kwikpen U-100] insuln.pen Insulin Lispro [Admelog Solostar] 5 unit SQ TIDWM 30 Days #5 05/29/18 insuln.pen Lancets [Bd Ultra-Fine II] 1 each MC QID 30 Days #1 packet 05/29/18 Potassium Chloride [K-Dur] 20 meq PO BIDWM 30 Days #60 tab 05/29/18 Lab/Diagnostics: Laboratory Last Values WBC 5.77 K/ul (4.6-10.2) 05/29/18 05:45 RBC 3.78 10^6/ul (4.20-5.40) L 05/29/18 05:45 Hgb 11.1 g/dl (12.0-16.0) L 05/29/18 05:45 Hct 34.0 % (37.0-47.0) L 05/29/18 05:45 MCV 89.9 fl (81.0-99.0) 05/29/18 05:45 MCH 29.4 pg (27.0-31.0) 05/29/18 05:45 MCHC 32.6 (31.8-35.4) 05/29/18 05:45 RDW Coeff of [place] 12.7 % (11.6-14.8) 05/29/18 05:45 Plt Count 232 10^3/uL (140-440) 05/29/18 05:45 Immature Gran % (Auto) 0.2 % (0.0-5.0) 05/29/18 05:45 Neut % (Auto) 30.0 05/29/18 05:45 Lymph % (Auto) 61.2 (10.0-50.0) H 05/29/18 05:45 [place]y % (Auto) 7.3 (0-10) 05/29/18 05:45 Eos % (Auto) 1.0 % (0.0-7.0) 05/29/18 05:45 Baso % (Auto) 0.3 % (0.0-3.0) 05/29/18 05:45 Immature Gran # (Auto) 0.0 (0.0-1.0) 05/29/18 05:45 Neut # (Auto) 1.7 K/ul (2.0-6.9) L 05/29/18 05:45 Lymph # (Auto) 3.5 K/uL (0.60-3.4) H 05/29/18 05:45 R[place]y # (Auto) 0.4 K/uL (0.4-2.0) 05/29/18 05:45 Eos # (Auto) 0.1 K/ul (0.0-0.7) 05/29/18 05:45 Baso # (Auto) 0.0 K/uL (0-0.2) 05/29/18 05:45 Puncture Site Rrad 05/27/18 04:59 O2 Saturation 97.0 % (95-100) 05/27/18 04:59 ABG pH 7.530 (7.35-7.45) H* 05/27/18 04:59 ABG pCO2 35.2 mmHg (35-45) 05/27/18 04:59 ABG pO2 84.0 mmHg (85-100) L 05/27/18 04:59 ABG HCO3 29.4 (22.0-26.0) H 05/27/18 04:59 ABG Total CO2 30 (22.0-28.0) H 05/27/18 04:59 ABG Base Excess 7 (-2.0-2.0) H 05/27/18 04:59 Sumeet Test + 05/27/18 04:59 FiO2 % 21.0 % 05/27/18 04:59 Sodium 138.0 mmol/L (134.5-145) 05/29/18 05:45 Potassium 3.20 mmol/L (3.5-5.1) L 05/29/18 05:45 Chloride 99.0 mmol/L (98-107) 05/29/18 05:45 Carbon Dioxide 35.0 mmol/L (22-30.0) H 05/29/18 05:45 Anion Gap 7.20 05/29/18 05:45 BUN 16.0 mg/dL (7-17) 05/29/18 05:45 Creatinine 1.20 mg/dL (0.60-1.30) 05/29/18 05:45 Estimated GFR (MDRD) 55.00 mL/min 05/29/18 05:45 BUN/Creatinine Ratio 13.33 05/29/18 05:45 Glucose 193.0 mg/dL (74-106) H 05/29/18 05:45 Lactic Acid 1.62 mmol/L (0.7-2.1) 05/27/18 04:57 Calcium 9.00 mg/dL (8.4-10.2) 05/29/18 05:45 Phosphorus 2.56 mg/dL (2.5-4.5) 05/28/18 12:55 Magnesium 1.93 mg/dL (1.6-2.3) 05/28/18 12:55 Total Bilirubin 0.20 mg/dL (0.2-1.3) 05/29/18 05:45 AST 26.0 U/L (14-36) 05/29/18 05:45 ALT 19.0 U/L (0-35) 05/29/18 05:45 Alkaline Phosphatase 106.0 U/L (53-141) 05/29/18 05:45 Total Protein 6.60 g/dL (6.3-8.2) 05/29/18 05:45 Albumin 3.50 g/dL (3.5-5.0) 05/29/18 05:45 Globulin 3.10 05/29/18 05:45 Albumin/Globulin Ratio 1.12 05/29/18 05:45 Amylase 80.6 U/L (30-110) 05/27/18 04:57 Lipase 136.7 U/L (23-300) 05/27/18 04:57 Procalcitonin < 0.05 ng/mL (0.09) 05/27/18 04:57 Urine Color Yellow (YELLOW) 05/27/18 09:55 Urine Clarity Clear (CLEAR) 05/27/18 09:55 Urine pH 6.0 (5-9) 05/27/18 09:55 Ur Specific [place] >=1.030 (1.005-1.030) 05/27/18 09:55 Urine Protein 2+ (NEGATIVE) 05/27/18 09:55 Urine Glucose (UA) Trace (NEGATIVE) 05/27/18 09:55 Urine Ketones Trace (NEGATIVE) 05/27/18 09:55 Urine Blood 2+ (NEGATIVE) 05/27/18 09:55 Urine Nitrite Negative (NEGATIVE) 05/27/18 09:55 Urine Bilirubin 1+ (NEGATIVE) 05/27/18 09:55 Urine Urobilinogen 0.2 (0.2) 05/27/18 09:55 Ur Leukocyte Esterase Negative (NEGATIVE) 05/27/18 09:55 Urine Microscopic RBC 2-5 (0-2) 05/27/18 09:55 Urine Microscopic WBC 0-2 (0-2) 05/27/18 09:55 Ur Squamous Epith Cells 2-5 (0-5) 05/27/18 09:55 Urine Bacteria 2+ (NOT PRESENT) 05/27/18 09:55 Hyaline Casts 0-2 (NOT PRESENT) 05/27/18 09:55 RBC Casts 0-2 (NOT PRESENT) 05/27/18 09:55 Acetone, Qual None (NONE) 05/27/18 04:53 Na/K Trends 05/27/18 05/27/18 05/28/18 Range/Units 04:57 12:30 05:20 Sodium 134.7 134.7 137.0 (134.5-145) mmol/L Potassium 2.58 L* 3.00 L 2.96 L (3.5-5.1) mmol/L 05/28/18 05/29/18 Range/Units 12:55 05:45 Sodium 136.5 138.0 (134.5-145) mmol/L Potassium 3.03 L 3.20 L (3.5-5.1) mmol/L H/H Trends 05/27/18 05/27/18 05/28/18 Range/Units 04:57 12:30 05:20 Hgb 12.6 11.8 L 10.7 L (12.0-16.0) g/dl Hct 37.7 36.4 L 33.2 L (37.0-47.0) % 05/29/18 Range/Units 05:45 Hgb 11.1 L (12.0-16.0) g/dl Hct 34.0 L (37.0-47.0) % Glucose Trends 05/27/18 05/27/18 05/28/18 Range/Units 04:57 12:30 05:20 Glucose 356.5 H 318.8 H 146.2 H D (74-106) mg/dL 05/28/18 05/29/18 Range/Units 12:55 05:45 Glucose 169.9 H 193.0 H (74-106) mg/dL A1C 11.02 05/25/18 CT abd pelvis 05/27/18 Stable chronic post op findings. No acute inflammatory process identified witin abdomen or pelvis within limitation of non contrast CT. CT Sinuses 05/27/18 Negative. Urine Culture ESBL+: Cipro/Levaquin/Nitrofurantoin are best options. Education Provided to Patient and Family: 1. DM Education 2. Would like to refer to outpatient DM educator 3. Insulin: How to use pen, how to prime, how to self admin. 4. S/sx of hypoglycemia 5. BP Goal <140/90 6. R/B/A to statins (on crestor) 7. Role of Tyler-I 8. HCTZ SE (Hypokalemia): Monitor. 9. Weight loss, initial goal of 12 lb in 3 months. 10. Keep food diary/increase activity. If chest pain needs to f/u sooner or go to ER. 11. Avoid glucocorticoids unless necessary. Follow-ups: 1. MANUAL WRITER Larrison 06/06/18. 2. Eye provider annually. Disposition: HOME SELF-CARE Hospital Course: 67 yr old AAF patient of [facility] admitted 05/27/18 and discharged on 05/29/[address] Campbell. Admisison dx N/V/D, suspected gastroenteritis, STEPHEN, marked hyperglycemia secondary to DM2 new diagnosis and questionable sinus infection. She had been seen in ER 05/24/[address] Lui for sinusitis given rocephin and decadron 8mg, seen in office 05/25/18, 05/26/18 and in ER 05/27/18. There was question about history of possible hypoglycemia in note from 05/25/18, hyperglycemia was noted on labs however and A1C >11 on 05/25/18. I talked with MANUAL WRITER Canelo about having patient come back into office for insulin on 05/26/18. She returned to clinic and was started on metformin and januvia. She came in to ER around 04:11 05/27/18 via ambulance with Vomiting/Diarrhea 24 hours, total bouts non bloody, non bilious emesis x3, total bouts of non bloody, non mucoid diarrhea x 6. Patient told ER that she thought her were due to new medications that were started. She had not yet taken abx. Vitals reviewed and did not meet Sepsis criteria, Temp 99.1, pulse 97, RR 20, BP 156/[address] Abd pelvis ordered by ER for r/o obstruction was negative. This was ordered with her history of previous abd surgeries. She had reported aching/cramping throughout abd. H/o Jennie, appe, CHACHO/BSO and colonic resection (ostomy + reversal) previously. ER note/presentation to me stated non surgical abd, no rebound/guarding or tenderness at [place]. She has known history of HTN , Irregular heart beats, Obesity, PUD, GERD, Diverticulitis w/ history of colon resection, anxiety/depression, joint/back pain and arthritis. CT scan of sinuses completed per sinus complaint and negative for acute process. CT abdomen negative. Labs from ER showed WBC 9.20, Hgb 12.6, plt 285. Sodium 134.7 , K+ 2.58, cl 93.6, bun 25.8, Cr 1.56, glucose 356.5 ast 40.3. Amylase 80.6, lipase 136.7. ABG 02 sat 97 7.530 ph, 35.2 pc02, po2 84, hco3 29.4, co2 30, allens +. Lactic acid was 1.62 and procalcitinon <0.05. ABG Interpretation done by me specifically: Primary respiratory alkalosis possibly chronic with secondary metabolic alkalosis as well. Acetone was negative. Not likely in DKA , based on mid 300's also did not suspect Hyperosmolar state. She was not able to produce urine. They were not able to get IV in ER. They contacted Dwayne Brewer and he performed conscious sedation on patient and was able to get an IV in her left upper arm, 24G. I was contacted by ER at 545 am 05/27/18 and I agreed to accept her. She reported s/sx of Gastroenteritis x 1 week, we reviewed labs/imaging/etc together and she was admitted to floor. She was admitted to SCU-1 and we started 0.2unit/kg/day insulin level for her. At 240 lb that equated to ~21 units. I gave her 10 units of lantus in hospital and I divided the other 10 units, giving 3 units of meal time insulin with each meal and corrected for 1 unit additional for every 50 above 150. We started q 2 hours accucheck, ran fluids 100ml/hour +2-meq K+. We stopped metformin due to renal function GFR <45. Newly dx diabetic, A1C >10. K+ monitored BID, Pneumonia vaccine refused each day. No abx for sinusitis, continued flonase. Regarding GERD, home PPI continued. DVT prophylaxis with lovenox 40 was utilized, she was started on clear liquid diet day 1 and advanced on 05/28/18. Activity throughout hospital up with assist. Sugars did not decline as I would have liked adn I increased her to 20 units daily (gave another 10) on 05/27/18 and increased the q2 hour check correctional and adjusted meal time to 5 units + 1 for every 50 above 150. She did well with sugars and these were improving. , I increased her to 30 units lantus daily and 5 units with each meal and stopped q 2 hour checks. Stable, felt better. Potassium improved to 3.2 by d/ c with TID WM potassium PO. We will resume BID dosing at d/c. Sugars 05/28/18 were 124/110/130/156/138/136/181/242/179 and stable. By D/C on 05/29/18, Urine grew ESBL E.Coli resistant to numerous agents but sensitive to cipro and levaquin and macrobid. With her history above, I discussed cipro x 3 days 500mg PO BID is likely best option. I do not think that macrobid would cover any higher/ascending infection . She is asymptomatic. R/B/A to these d/w patient and she agreed with my assessment. Lengthy education process on DM during hospital stay. How to use insulin pen, apply needle, prime, turn to desired amount, how to dispose of needle, how long to keep out of fridge before getting new pen, where to keep pens. Discussed diet, discussed BMI, discussed statins, discussed tyler-I benefit. Discussed pneumonia vaccine benefit. Not interested in the vaccine for Prevnar 13/ influenza at present. She will get a sample pen of basaglar from me at d/c. It has 7 pen needles. LOT [id number] and exp 05/11. She will have basaglar 30 units qhs sent to pharmacy, admelog 5 units TID WM sent to pharmacy, cipro 500 BID x 3 days #6 to pharmacy, K+CL- 20meq BID WM #60 sent to pharmacy, sent rx for pen needles and test strips as well. Vitals stable, urine output good, afebrile entire stay. Tele this am said BBB I looked at strip and EKG personally and there is no BBB. I discussed this with nursing. Mild anemia improved by 05/29/18. Tolerating PO. No BM during hospital, no N/V during hospital stay. She is improved and clearly ready for d/c home in stable/ improved condition. - CBC/CMP in 1 week - Appt with MANUAL WRITER Canelo 06/06/18 - Hold metformin until 06/06/18 and make sure GFR remains >45. Day of D/C physical exam completed and found to be unchanged from 05/28/18 ( included below). Constitutional: Appearance-No acute distress, feels much better, awake alert oriented and pensive. Asked great questions today, surprised at how well she felt regarding her health. Appears Consistent with stated age. Orientation- Oriented x 3, alert Build and Nutrition- Morbidly obese AAF General- Patient is pleasant and cooperative with the interview and exam. Integumentary: General-No rashes, ulcers or lesions. Scar right knee from replacement. Head/Neck: Head- normocephalic and atraumatic. Neck- without visible/palpable lumps or pulsations. Palpation- No bony tenderness about head/neck along frontal, occipital, temporal, parietal, mastoid, jawline, zygoma, orbit or any other location. NO temporal artery tenderness. No TMJ tenderness. Neck Supple. Thyroid-No thyromegaly, no nodules Eye: Bilaterally PERRLA, EOMI. No discharge. Upper and lower eyelids are normal. Sclera/conjunctiva normal without discharge. Cornea is normal and clear. Lens is normal. Eyeball appears normal. No ciliary flushing, no conjunctival injection. ENMT: Nose and sinus- No sinus tenderness along frontal/maxillary region. External appearance normal and midline. Nares- bilateral quiet airflow, mild clear discharge. Nasal mucosa- No bleeding noted and no ulcerations observed. Erythematous, Turbinates boggy. Lips- normal color, moist without cracks/ lesions Oral Cavity/Palate- hard/soft palate intact without lesions, oral mucosa pink and moist.Salivary glands- Non tender to palpation CHEST/LUNG: Inspection- symmetric chest wall no pectus deformity. Normal effort , no distress, no use of accessory muscles. Palpation- nontender sternum, ribline. No abnormal pulsations. Auscultation- Breath sounds normal throughout all lung william. Normal tracheal sounds, Normal bronchial sounds overlying sternum, Bronchovessicular sounds normal between scapulae posteriorly, Normal vessicular breath sounds heard throughout periphery. Lungs are clear today. Adventitious sounds- No wheezes, rales, rhonchi. CARDIOVASCULAR: Carotid artery- normal, no bruits or abnormal pulsations. Jugular vein- no pulsations. Palpation/Percussion- Normal PMI, no palpable thrill Auscultation- Regular rate and rhythm. No murmur noted in sitting, supine positions. Extremities- no digital clubbing, cyanosis, edema, increased warmth. ABDOMEN: Inspection- normal and no visible pulsations. Normal contour. Auscultation- Bowel sounds normal, no abdominal bruits. Palpation/Percussion- soft, non-tender, no rigidity (guarding), no jar tenderness, no masses. Liver- no hepatomegaly, Spleen no splenomegaly, Peripheral Vascular: Upper extremity Left- Normal temperature with pink nailbeds and no ulcerations. Upper extremity Right- Normal temperature with pink nailbeds and no ulcerations. Lower extremity- Normal temperature with pink nailbeds and no ulcerations. DP pulses 2+ bilaterally. Pedal hair reduced. Normal capillary refill. Edema- No edema. Musculoskeletal: Generalized-No generalized swelling or edema of extremities, no digital clubbing or cyanosis, neurovascularly intact all four extremities. Neurological: General- Moves all 4 extremities symmetrically. Symmetrical face and body posture. Cranial nerves- individually evaluated II-XII and intact. PERRLA, Normal EOMI, visual/special senses appear intact, Face is symmetrical and normal sensation/movement, normal tongue, normal strength/posture of neck musculature. Neuropsych: Oriented- Person, place, time. (AAOx3), Mood/affect- normal and congruent. Able to articulate well. Speech-Normal speech, normal rate, normal tone, normal use of language, volume and coherence. Thought content- normal Associations- intact, no SI/HI, no hallucinations, delusions, obsessions. Judgment/insight- Appropriate. Lymphatic: Head/Neck- normal size and non tender to palpation Plan: New Diagnoses: 1. Diabetes 2 A1C goal 7-8% w/ hyperglycemia A. 30 units of basaglar at night, Make sure all pens except 1 remain in refrigerator. - Each time you use a new pen you will need to prime the pen. - INsulin pens and needles will be sent to your pharmacy B. 5 units of admelog will be used before each meal. If you do not eat do not take this insulin. - INsulin pens and needles will be sent to your pharmacy. C. Check glucose fasting and just before each meal. Document these and bring them to clinic to see how the sugars are doing and to see if we need to change the medication. D. We will hold on metformin for now, likely resume this at the next office visit. E. Continue blood pressure medications with goal blood pressure <140 on top and <90 on bottom number. F. Encourage pneumonia and flu vaccines, declined them again this am. I would highly recommend them. 2. ESBL UTI A. Urine grew a bacteria called E. Coli and it is resistant to numerous medications. Cipro antibiotic and nitrofurantion are reasonable choices. I have chosen cipro due to the fact that nitrofurantoin does not cover ascending symptoms and only covers bladder specifically. Cipro is not without risk, it has been very popular in the literature lately and I have weighed the risks to benefits and feel that with this infection it is likely the best choice for you. F/U Labs: CMP in 1 week. CBC in 1 week. New Meds: Basaglar 30 units QHS Admelog 5 units TIDWM BD ULtrafine pen needles. Potassium Chloride 20meq 2x daily with meals. Cipro 500 BID X 3 days. Activity: Ad duglas Diet: Diabetic Diet: Start with 3291-5176 kcal/day. Keep log and adjust down ultimately to ~1800kcal/day. >30 minutes spent on d/c today regarding DM, d/w patient again on sample and how to use insulin, prime pen. Made sure pharmacy received the meds. F/U to be made with PARISH Lemos 06/06/18.
== END 2018-05-29 12:04 | disposition home or self-care (01) | DRG 638 ==
LOC: ED 04:01 → SCU 05:57
PROVIDERS: ADMIT Family Medicine; ATTEND Family Medicine
DX: E11.65 Type 2 diabetes mellitus with hyperglycemia (principal); N17.9 Acute kidney failure, unspecified; Z68.41 Body mass index [BMI] 40.0-44.9, adult; E87.6 Hypokalemia; E83.51 Hypocalcemia; E66.01 Morbid (severe) obesity due to excess calories; R19.7 Diarrhea, unspecified; F41.9 Anxiety disorder, unspecified; K52.9 Noninfective gastroenteritis and colitis, unspecified; K21.9 Gastro-esophageal reflux disease without esophagitis; J32.9 Chronic sinusitis, unspecified; D64.9 Anemia, unspecified; I10 Essential (primary) hypertension; Z87.891 Personal history of nicotine dependence; Z71.3 Dietary counseling and surveillance
CPT/HCPCS: 36415; 74176; 80048; 80053; 81001; 82009; 82150; 82803; 82962; 83605; 83690; 83735; 84100; 84145; 85025; 87086; 87186; 93005; 93010; 96361; 96374; 99223; 99233; 99239; 99284

== ENCOUNTER 2018-07-03 01:00 | Outpatient (CLI) | payer OTHER ==
[2012-10-24 06:54] VITALS: TEMP 98.1
== END 2018-07-03 01:01 | disposition home or self-care (01) ==
LOC: AMBL 01:00
PROVIDERS: ATTEND Family Medicine
DX: R11.10 Vomiting, unspecified (principal); R19.7 Diarrhea, unspecified; R10.84 Generalized abdominal pain; R73.9 Hyperglycemia, unspecified; Z87.19 Personal history of other diseases of the digestive system

== ENCOUNTER 2018-10-13 16:04 | Outpatient (CLI) ==
[2012-10-24 06:54] VITALS: TEMP 98.1
== END 2018-10-13 16:05 | disposition home or self-care (01) ==
LOC: RHC-LAB 16:04
PROVIDERS: ATTEND Nurse Practitioner Family
DX: E11.9 Type 2 diabetes mellitus without complications (principal); Z79.4 Long term (current) use of insulin; I10 Essential (primary) hypertension
CPT/HCPCS: 36415; 83037

== ENCOUNTER 2019-01-25 10:21 | Outpatient (CLI) ==
[2012-10-24 06:54] VITALS: TEMP 98.1
== END 2019-01-25 10:22 | disposition home or self-care (01) ==
LOC: RHC-LAB 10:21 → FCC-LAB 10:22
PROVIDERS: ATTEND Family Medicine
DX: H57.11 Ocular pain, right eye (principal)
CPT/HCPCS: 36415; 80053; 85025; 85651